=== PATIENT | male | born 1945 | race Caucasian/White ===

== ENCOUNTER 2017-10-18 21:00 | Inpatient (IN) | payer MEDICARE ==
[2017-10-18] MEDS ORDERED: Sodium Chloride 0.9% 500 ML IV STA (21:37)
--- NOTE | 2017-10-18 21:42 | ED PDOC ---
HPI: Male Pain Time Seen by Provider: 10/18/17 21:30 Chief Complaint (Nursing): Male Genitourinary Chief Complaint (Provider): dysuria History Per: Patient History/Exam Limitations: no limitations Onset/Duration Of Symptoms: Days (2) Current Symptoms Are (Timing): Still Present Quality Of Discomfort: Burning, "Pain" Associated Symptoms: Nausea, Vomiting, Urinary Symptoms Additional Complaint(s): 71 y/o male presents for evaluation of dysuria x 2 days. Associated tactile fevers, vomiting, increased urine frequency/urgency and suprapubic pain. Denies headache, dizziness, back pain, hematuria. Last dose Tylenol taken 4:00am. Past Medical History Reviewed: Historical Data, Nursing Documentation, Vital Signs Vital Signs: Last Vital Signs Temp 99.3 F 10/18/17 21:06 Pulse 108 H 10/18/17 21:06 Resp 16 10/18/17 21:06 BP 153/81 H 10/18/17 21:06 Pulse Ox 98 10/18/17 21:06 - Medical History PMH: HTN Denies: HIV - Surgical History Surgical History: No Surg Hx - Family History Family History: States: No Known Family Hx - Living Arrangements Living Arrangements: With Family - Home Medications Home Medications: Ambulatory Orders Medication Instructions Recorded Atenolol [Tenormin] 50 mg PO DAILY 12/28/14 - Allergies Allergies/Adverse Reactions: Allergies Allergy/AdvReac Type Severity Reaction Status Date / Time No Known Allergies Allergy Verified 10/18/17 21:06 Review of Systems ROS Statement: Except As Marked, All Systems Reviewed And Found Negative Gastrointestinal: Positive for: Nausea, Vomiting, Abdominal Pain Genitourinary Male: Positive for: Dysuria, Frequency Physical Exam - Reviewed Nursing Documentation Reviewed: Yes Vital Signs Reviewed: Yes - Physical Exam Appears: Positive for: Well, Non-toxic, No Acute Distress Head Exam: Positive for: ATRAUMATIC, NORMAL INSPECTION, NORMOCEPHALIC Skin: Positive for: Normal Color Eye Exam: Positive for: Normal appearance ENT: Positive for: Normal ENT Inspection Cardiovascular/Chest: Positive for: Regular Rate, Rhythm Respiratory: Positive for: Normal Breath Sounds Gastrointestinal/Abdominal: Positive for: Bowel Sounds, Soft, Tenderness ( suprapubic) Back: Positive for: Normal Inspection Extremity: Positive for: Normal ROM Neurologic/Psych: Positive for: Alert, Oriented (x3) - Laboratory Results Result Diagrams: 10/18/17 22:12 10/18/17 22:12 - ECG ECG: Positive for: Viewed By Me (reviewed by ED attending) ECG Rhythm: Positive for: Sinus Rhythm O2 Sat by Pulse Oximetry: 98 - Radiology X-Ray: Viewed By Me X-Ray Interpretation: No Acute Disease - Progress ED Course And Treament: labs, urine, CT abd/pelvis IV contrast, IV fluids, IV toradol EXAM: CT Abdomen and Pelvis With Intravenous Contrast EXAM DATE/TIME: 10/18/2017 10:52 PM CLINICAL HISTORY: 71 years old, male; Pain and signs and symptoms; Fever and nausea and other: Dysuria; Abdominal pain; Generalized; Additional info: Abd pain, vomiting, dysuria TECHNIQUE: Axial computed tomography images of the abdomen and pelvis with intravenous contrast. All CT scans at this facility use at least one of these dose optimization techniques: automated exposure control; mA and/or kV adjustment per patient size (includes targeted exams where dose is matched to clinical indication); or iterative reconstruction. Coronal and sagittal reformatted images were created and reviewed. No oral contrast was administered. CONTRAST: 95 ml of [id number] administered intravenously. COMPARISON: CT Abdomen/Pelvis 12/28/2014 FINDINGS: Lower thorax: No pulmonary airspace consolidation or pleural fluid collection in the imaged portion of the thorax. ABDOMEN: Liver: Redemonstrated diffuse fatty infiltration of the liver. Redemonstrated mild hepatomegaly. Gallbladder and bile ducts: No acute findings. No radiopaque gallstones. Pancreas: No acute findings. No peripancreatic fat stranding or fluid. Spleen: Mild splenomegaly, new since the prior study. Adrenals: No acute findings. Kidneys and ureters: Mild to moderate bilateral perinephric fat stranding, mildly increased compared to the prior study. No striated nephrogram. No urinary tract dilation or evident urinary tract calculi. Redemonstrated 12 mm right renal cyst. Stomach and bowel: Redemonstrated colonic diverticulosis. Prominent wall thickening of the distal descending through mid sigmoid colon with moderate adjacent fat stranding, more extensive than on the prior study. The pericolonic inflammatory changes extend from the inferior margin of the sigmoid colon to the superior margin of the bladder dome. There is prominent circumferential bladder wall thickening and more pronounced focal bladder wall thickening at the bladder dome. There is a 1.6 x 1.7 x 0.9 cm gas-containing fluid collection consistent with an abscess in or adjacent to the bladder dome (series 3, image 156). There is also a small focus of air in the bladder lumen. Moderate fat stranding surrounding the bladder. No evident acute abnormality of the rest of the colon. No evident acute abnormality of the stomach or small bowel. Appendix: Normal appendix. PELVIS: Bladder: See "Stomach and bowel" above. Reproductive: Redemonstrated enlargement of the prostate gland, measuring 6.7 cm in maximal axial dimension. ABDOMEN and PELVIS: Intraperitoneal space: No free intraperitoneal air. Tiny amount of free intraperitoneal fluid. Bones/joints: No acute findings. Soft tissues: Redemonstrated small, fat-containing umbilical hernia with no associated complications. Vasculature: No acute findings. The abdominal aorta is normal in caliber. Lymph nodes: No enlarged abdominal or pelvic lymph nodes by CT criteria. IMPRESSION: 1. Acute diverticulitis of the distal descending through mid sigmoid colon. The pericolonic inflammation extends inferiorly to involve the bladder dome and there is a 1.6 x 1.7 x 0.9 cm abscess in or adjacent to the bladder dome. A small focus of air in the bladder lumen may be due to recent bladder catheterization but differential diagnosis also includes a colovesical fistula. Circumferential bladder wall thickening with surrounding fat stranding is consistent with reactive cystitis. 2. Mild to moderate bilateral perinephric fat stranding can be a normal variant for the patient's age. Differential diagnosis also includes acute pyelonephritis but there are no striated nephrograms to further suggest pyelonephritis. 3. Mild splenomegaly. 4. Redemonstrated diffuse fatty infiltration of the liver and mild hepatomegaly. 5. Additional redemonstrated and nonacute findings as described above. Case discussed with ED attending Dr. Polanco, will start IV Cipro, IV flagyl and admit Case discussed with Dr. Kendall, medical service on-call, for admission Disposition - Clinical Impression Clinical Impression: Urinary tract infection, Diverticulitis, Intra-abdominal abscess - Patient ED Disposition Is Patient to be Admitted: Yes - Disposition Disposition Time: 01:00 Condition: FAIR
[2017-10-18 22:18] LABS: BASO % 0.3 % (0.0-2.0); EOS % 0.3 % (0.0-4.0); LYMPH # 0.9 K/uL (1.0-4.3); LYMPH % 7.2 % (20.0-40.0); MEAN CELL VOLUME 95.2 fl (80.0-94.0); MEAN CORPUSCULAR HEMOGLOBIN 33.2 pg (27.0-31.0); MEAN CORPUSCULAR HGB CONC 34.9 g/dL (33.0-37.0); MEAN PLATELET VOLUME 7.1 fl (7.2-11.7); MONO # 0.7 K/uL (0.0-0.8); NEUT # 10.2 K/uL (1.8-7.0); NEUT % 86.2 % (50.0-75.0); PLATELET COUNT 145 K/uL (130-400); RED CELL DISTRIBUTION WIDTH 13.7 % (11.5-14.5); WHITE BLOOD COUNT 11.8 K/uL (4.8-10.8)
[2017-10-18 22:20] LABS: VENOUS BLOOD GAS BASE EXCESS 4.9 mmol/L (0.0-2.0); VENOUS BLOOD GAS PCO2 36 mmHg (40-60); VENOUS BLOOD GAS PO2 37 mm/Hg (30-55)
[2017-10-18 22:36] LABS: SQUAMOUS EPITHIAL 1 /hpf (0-5); URINE BACTERIA OCC (<OCC); URINE BILIRUBIN NEGATIVE (NEGATIVE); URINE BLOOD MODERATE (NEGATIVE); URINE CLARITY CLOUDY (Clear); URINE COLOR AMBER (YELLOW); URINE GLUCOSE (UA) NEG (Normal); URINE HYALINE CAST 0-2 /hpf (0-2); URINE LEUKOCYTE ESTERASE MOD Leu/uL (Negative); URINE PROTEIN >=500 mg/dL (NEGATIVE); URINE UROBILINOGEN 0.2-1.0 mg/dL (0.2-1.0); WBC CLUMPS FEW /hpf
[2017-10-18 22:39] LABS: ALBUMIN 3.8 g/dL (3.5-5.0); ALT/SGPT 27 U/L (21-72); AST/SGOT 29 U/L (17-59); BLOOD UREA NITROGEN 22 mg/dl (9-20); CALCIUM 8.2 mg/dL (8.4-10.2); GFR AFRICAN-AMERICAN > 60; GFR NON-AFRICAN AMERICAN > 60
[2017-10-18] MEDS ORDERED: Sodium Chloride 0.9% 50 ML IV ONE (23:00)
[2017-10-18] MEDS ORDERED: Iohexol 300 100 ML IJ ONE (23:00)
[2017-10-18 23:09] LABS: ANISOCYTOSIS SLIGHT; BANDS 1 % (0-2); LYMPHOCYTE 7 % (20-50); MONOCYTE 6 % (0-10); NEUTROPHIL 86 % (42-75); PLATELET ESTIMATE NORMAL (NORMAL); TOTAL CELLS COUNTED 100
[2017-10-18] MEDS ORDERED: Potassium Chloride 20 mEq ER Tab PO ONE ×2 (23:12→23:21)
[2017-10-19] MEDS ORDERED: metroNIDAZOLE 500mg/100ml NS 100 ML IV STA (00:37)
[2017-10-19] MEDS ORDERED: Ciprofloxacin 400mg/200ml D5W 400 MG/200 ML BAG IV ONE (00:37)
[2017-10-19] MEDS ORDERED: Sodium Chloride 0.9% 500 ML IV STA ×2 (00:50→02:50)
[2017-10-19] MEDS ORDERED: Ciprofloxacin 400mg/200ml D5W 400 MG/200 ML BAG IVPB ONE (01:04)
[2017-10-19] MEDS ORDERED: metroNIDAZOLE 500mg/100ml NS 100 ML IVPB ONE (01:04)
[2017-10-19 07:56] LABS: HEMOGLOBIN 11.6 g/dL (12.0-18.0); MEAN CELL VOLUME 94.4 fl (80.0-94.0); MEAN CORPUSCULAR HEMOGLOBIN 33.8 pg (27.0-31.0); MEAN CORPUSCULAR HGB CONC 35.8 g/dL (33.0-37.0); RBC 3.44 Mil/uL (4.40-5.90); RED CELL DISTRIBUTION WIDTH 13.7 % (11.5-14.5); WHITE BLOOD COUNT 7.9 K/uL (4.8-10.8)
--- NOTE | 2017-10-19 08:02 | CP.PCM.HP ---
<Neha Killian - Last Filed: 10/19/17 11:09> History of Present Illness - History of Present Illness History of Present Illness: 71 yo M with hypertension and history of pancreatitis, who is admitted to [facility] center due to acute diverticulitis. For the past 2 days, he has had dysuria, tactile fevers, vomiting, inceased urinary frequency and urgency, and suprapubic pain. He has taken tylenol for pain but it did not alleviate discomfort and pain. No hematuria, no chest pain, no dizziness, no shortness of breath. CT done in ED: 1. Acute diverticulitis of the distal descending through mid sigmoid colon. The pericolonic inflammation extends inferiorly to involve the bladder dome and there is a 1.6 x 1.7 x 0.9 cm abscess in or adjacent to the bladder dome. A small focus of air in the bladder lumen may be due to recent bladder catheterization but differential diagnosis also includes a colovesical fistula. Circumferential bladder wall thickening with surrounding fat stranding is consistent with reactive cystitis. 2. Mild to moderate bilateral perinephric fat stranding can be a normal variant for the patient's age. Differential diagnosis also includes acute pyelonephritis but there are no striated nephrograms to further suggest pyelonephritis. 3. Mild splenomegaly. 4. Redemonstrated diffuse fatty infiltration of the liver and mild hepatomegaly. 5. Additional redemonstrated and nonacute findings. Present on Admission - Present on Admission Any Indicators Present on Admission: No Review of Systems - Review of Systems Review of Systems: as per HPI Past Patient History - Past Medical History & Family History Past Medical History?: Yes - Past Social History Smoking Status: Never Smoked Drugs: Denies - CARDIAC Hx Hypertension: Yes - PULMONARY Hx Respiratory Disorders: No - NEUROLOGICAL Hx Neurological Disorder: No - HEENT Hx HEENT Problems: No - RENAL Hx Chronic Kidney Disease: No - ENDOCRINE/METABOLIC Hx Endocrine Disorders: No - HEMATOLOGICAL/ONCOLOGICAL Hx Human Immunodeficiency Virus (HIV): No - INTEGUMENTARY Hx Dermatological Problems: No - MUSCULOSKELETAL/RHEUMATOLOGICAL Hx Musculoskeletal Disorders: No Hx Falls: No - GASTROINTESTINAL Hx Gastrointestinal Disorders: Yes Hx Fatty Liver Disease: Yes Hx Pancreatitis: Yes - GENITOURINARY/GYNECOLOGICAL Hx Genitourinary Disorders: No - PSYCHIATRIC Hx Psychophysiologic Disorder: No Hx Substance Use: No - SURGICAL HISTORY Hx Surgeries: No - ANESTHESIA Hx Anesthesia: No Meds Allergies/Adverse Reactions: Allergies Allergy/AdvReac Type Severity Reaction Status Date / Time No Known Allergies Allergy Verified 10/18/17 21:06 Physical Exam - Constitutional Appears: No Acute Distress - Eye Exam Eye Exam: Normal appearance - Respiratory Exam Respiratory Exam: Clear to Auscultation Bilateral, NORMAL BREATHING PATTERN - Cardiovascular Exam Cardiovascular Exam: REGULAR RHYTHM, +S1, +S2 - GI/Abdominal Exam GI & Abdominal Exam: Normal Bowel Sounds, Soft, Tenderness (suprapubic) - Extremities Exam Extremities exam: Positive for: normal inspection. Negative for: calf tenderness - Neurological Exam Neurological exam: Alert - Psychiatric Exam Psychiatric exam: Normal Mood - Skin Skin Exam: Normal Color, Warm Results - Vital Signs Recent Vital Signs: Last Vital Signs Temp 99.3 F 10/19/17 03:15 Pulse 95 H 10/19/17 03:15 Resp 18 10/19/17 03:15 BP 145/71 10/19/17 03:15 Pulse Ox 98 10/19/17 05:38 - Labs Result Diagrams: 10/19/17 07:37 10/19/17 07:37 Labs: Laboratory Results - last 24 hr 10/18/17 10/18/17 10/18/17 22:10 22:12 22:12 WBC 11.8 H D RBC 3.60 L Hgb 12.0 Hct 34.3 L MCV 95.2 H MCH 33.2 H MCHC 34.9 RDW 13.7 Plt Count 145 MPV 7.1 L Neut % (Auto) 86.2 H Lymph % (Auto) 7.2 L Roberts % (Auto) 6.0 Eos % (Auto) 0.3 Baso % (Auto) 0.3 Neut # (Auto) 10.2 H Lymph # (Auto) 0.9 L Roberts # (Auto) 0.7 Eos # (Auto) 0.0 Baso # (Auto) 0.0 Neutrophils % (Manual) 86 H Band Neutrophils % 1 Lymphocytes % (Manual) 7 L Monocytes % (Manual) 6 Platelet Estimate Normal Anisocytosis (manual) Slight Macrocytosis (manual) Slight pO2 VBG pH VBG pCO2 VBG HCO3 VBG Total CO2 VBG O2 Sat (Calc) VBG Base Excess VBG Potassium Sodium 135 Chloride 98 Glucose Lactate FiO2 Potassium 2.9 L Carbon Dioxide 24 Anion Gap 16 BUN 22 H Creatinine 1.1 Est GFR ( Amer) > 60 Est GFR (Non-Af Amer) > 60 Random Glucose 136 H Calcium 8.2 L Total Bilirubin 1.0 AST 29 ALT 27 Alkaline Phosphatase 94 Total Protein 7.4 Albumin 3.8 Globulin 3.6 Albumin/Globulin Ratio 1.0 Venous Blood Potassium Urine Color Aleena Urine Clarity Cloudy Urine pH 6.0 Ur Specific Jupiter 1.024 Urine Protein >=500 Urine Glucose (UA) Neg Urine Ketones Negative Urine Blood Moderate Urine Nitrate Negative Urine Bilirubin Negative Urine Urobilinogen 0.2-1.0 Ur Leukocyte Esterase Mod Urine RBC (Auto) 21 H Urine WBC Clumps (Auto) Few H Urine Microscopic WBC 378 H Ur Squamous Epith Cells 1 Urine Bacteria Occ H Hyaline Casts 0-2 10/18/17 22:12 WBC RBC Hgb Hct MCV MCH MCHC RDW Plt Count MPV Neut % (Auto) Lymph % (Auto) Roberts % (Auto) Eos % (Auto) Baso % (Auto) Neut # (Auto) Lymph # (Auto) Roberts # (Auto) Eos # (Auto) Baso # (Auto) Neutrophils % (Manual) Band Neutrophils % Lymphocytes % (Manual) Monocytes % (Manual) Platelet Estimate Anisocytosis (manual) Macrocytosis (manual) pO2 37 VBG pH 7.50 H VBG pCO2 36 L VBG HCO3 28.2 VBG Total CO2 29.2 H VBG O2 Sat (Calc) 78.2 H VBG Base Excess 4.9 H VBG Potassium 2.7 L Sodium 133.0 Chloride 100.0 Glucose 138 H Lactate 0.9 FiO2 21.0 Potassium Carbon Dioxide Anion Gap BUN Creatinine Est GFR ( Amer) Est GFR (Non-Af Amer) Random Glucose Calcium Total Bilirubin AST ALT Alkaline Phosphatase Total Protein Albumin Globulin Albumin/Globulin Ratio Venous Blood Potassium 2.7 L Urine Color Urine Clarity Urine pH Ur Specific Jupiter Urine Protein Urine Glucose (UA) Urine Ketones Urine Blood Urine Nitrate Urine Bilirubin Urine Urobilinogen Ur Leukocyte Esterase Urine RBC (Auto) Urine WBC Clumps (Auto) Urine Microscopic WBC Ur Squamous Epith Cells Urine Bacteria Hyaline Casts Assessment & Plan - Assessment and Plan (Free Text) Assessment: 71 yo M with hypertension, history of pancreatitis in 2015, admitted for acute diverticulitis; possible fistula. On labs found to have hyperlipidemia, hypokalemia, low vit B12. Plan: - admitted to med surg - [facility] - hoke and flagyl started - continue IV hydration and pain control, replete K - await results urine and blood cultures - gastroenterology and general surgery consults placed - [facility] meds for htn - heart healthy diet - scd - rest of plan as ordered <Aleksandar Kendall - Last Filed: 10/21/17 06:48> Results - Vital Signs Recent Vital Signs: Last Vital Signs Temp 99.5 F 10/21/17 00:36 Pulse 79 10/21/17 00:36 Resp 18 10/21/17 00:36 BP 141/84 10/21/17 00:36 Pulse Ox 98 10/21/17 00:36 - Labs Result Diagrams: 10/20/17 06:00 10/20/17 06:00 Labs: Laboratory Results - last 24 hr 10/20/17 10/20/17 06:00 06:00 WBC 4.8 RBC 3.41 L Hgb 11.5 L Hct 32.9 L MCV 96.3 H MCH 33.6 H MCHC 35.0 RDW 14.0 Plt Count 136 Sodium 137 Potassium 3.5 L Chloride 105 Carbon Dioxide 23 Anion Gap 13 BUN 16 Creatinine 1.2 Est GFR ( Amer) > 60 Est GFR (Non-Af Amer) > 60 Random Glucose 136 H Calcium 8.0 L Phosphorus 2.5 Magnesium 2.0 Total Bilirubin 0.6 AST 40 ALT 33 Alkaline Phosphatase 87 Total Protein 6.4 Albumin 3.3 L Globulin 3.0 Albumin/Globulin Ratio 1.1 Triglycerides 1004 H Assessment & Plan - Assessment and Plan (Free Text) Plan: Patient was personally seen and examined by me in rounds with residents. Available labs and diagnostic data reviewed. Case, Patient's condition and management plan discussed with residents in rounds. Agree with resident's progress note. Plan: As ordered.
--- NOTE | 2017-10-19 08:15 | RAD ---
Date of service: 10/19/2017 HISTORY: admit COMPARISON: 12/31/2014 FINDINGS: LUNGS: No active pulmonary disease. PLEURA: No significant pleural effusion identified, no pneumothorax apparent. CARDIOVASCULAR: Mild cardiomegaly (similar-appearing) probable top-normal pulmonary vasculature -shallow lung volume status noted. OSSEOUS STRUCTURES: No significant abnormalities. VISUALIZED UPPER ABDOMEN: Normal. OTHER FINDINGS: None. IMPRESSION: Current exam more shallow lung volumes than before -accentuating above appearances noted No interval consolidation
[2017-10-19 08:19] LABS: ALBUMIN 3.6 g/dL (3.5-5.0); ALT/SGPT 28 U/L (21-72); AST/SGOT 28 U/L (17-59); BLOOD UREA NITROGEN 22 mg/dl (9-20); CALCIUM 7.8 mg/dL (8.4-10.2); GFR AFRICAN-AMERICAN > 60; GFR NON-AFRICAN AMERICAN > 60; HDL CHOLESTEROL 15 MG/DL (30-70)
--- NOTE | 2017-10-19 08:30 | CARD ---
APPROVED REPORT Date of service: 10/18/2017 <Conclusion> Normal sinus rhythm Normal ECG
[2017-10-19 08:34] LABS: LDL CHOLESTEROL < 30 mg/dL (0-129)
[2017-10-19] MEDS: Enoxaparin 40 mg Syringe SC SCH (08:51)
[2017-10-19] MEDS ORDERED: Ciprofloxacin 400mg/200ml D5W 400 MG/200 ML BAG IVPB SCH (09:00)
[2017-10-19] MEDS ORDERED: Potassium Chloride 20 mEq ER Tab PO ONE (09:38)
[2017-10-19] MEDS ORDERED: Potassium Chl 40 mEq in D5-NS 1,000 ML IV SCH (10:00)
--- NOTE | 2017-10-19 11:14 | CT ---
Date of service: 10/18/2017 PROCEDURE: CT Abdomen and Pelvis with contrast HISTORY: abd pain, vomiting, dysuria COMPARISON: Comparison is made with the previous study dated 12/28/2014 TECHNIQUE: Contrast dose: 95 mL of Omnipaque 300. Axial and reformatted coronal and sagittal CT images of the abdomen and pelvis were obtained after IV contrast administration. Radiation dose: Total exam DLP = 677.18 mGy-cm. This CT exam was performed using one or more of the following dose reduction techniques: Automated exposure control, adjustment of the mA and/or kV according to patient size, and/or use of iterative reconstruction technique. FINDINGS: LOWER THORAX: Unremarkable. LIVER: Moderate hepatic steatosis is again noted. [id number] hepatomegaly is again noted. GALLBLADDER AND BILE DUCTS: Unremarkable. PANCREAS: Unremarkable. No gross lesion or ductal dilatation. SPLEEN: The spleen is mildly enlarged. ADRENALS: Unremarkable. No mass. KIDNEYS AND URETERS: The kidneys enhance symmetrically. Again noted is bilateral nonspecific perinephric stranding. No evidence of hydronephrosis. VASCULATURE: Unremarkable. No aortic aneurysm. BOWEL: Colonic diverticulosis are again noted. There is segmental wall thickening of the sigmoid colon surrounding with inflammatory changes suggestive of acute diverticulitis. There is adjacent fluid collection measures 3.8 by 2.3 centimeter contains fluid and air suggestive of abscess formation that cannot be from the bladder dome. The possibility of colovesical fistula cannot be excluded. There is no evidence of high-grade bowel obstruction. Mildly dilated small bowel loops at the mid abdomen noted. APPENDIX: Normal appendix. PERITONEUM: Unremarkable. No free fluid. No free air. LYMPH NODES: Unremarkable. No enlarged lymph nodes. BLADDER: Diffuse urinary bladder wall thickening. There is a small amount of air seen at the anterior aspect of the bladder lumen which could be due to recent catheterization. However the possible colovesical fistula cannot be totally excluded due to presence of abscess formation that cannot be from the bladder dome and inflammatory changes from the adjacent diverticulitis. REPRODUCTIVE: The prostate is moderately enlarged. BONES: No acute fracture. OTHER FINDINGS: None. IMPRESSION: Findings consistent with acute diverticulitis involving the sigmoid colon and associated with diffuse thickening of the proximal sigmoid colon. Further assessment of the large bowel after the acute phase is suggested. Findings suspicious for abscess formation extending from the sigmoid colon to the bladder dome measures 3.8 x 2.3 centimeter. Small focus of air in the bladder lumen may be due to recent bladder catheterization however the possibility of colovesical fistula also should be excluded. Mild splenomegaly. Additional findings as described above. Preliminary report was submitted by [facility].
[2017-10-19 11:16] LABS: AMYLASE 50 U/L (30-110); LIPASE 73 U/L (23-300)
--- NOTE | 2017-10-19 11:25 | CP.PCM.CON ---
<TomaSola - Last Filed: 10/19/17 11:22> History of Present Illness - History of Present Illness History of Present Illness: General Surgery Dr. Parada 71 y/o M w/ PMHx of HTN, HLD, pancreatitis presented to the ED on 10/18 c/o suprapubic abd pain. Pt states pain started Tuesday, assoc w/ nausea, NBNB vomiting, subjective F/C. At home, pt took tylenol for pain and fever relief; however, on Tuesday, pt was unable to get relief, thus prompting him to come to the ED for evaluation. Pt reports having similar pain 5 yr ago when he was Dx and Tx non-operatively for diverticulitis. 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 Pt admits to dysuria, frequency, and odor w/ urination, which started concurrently w/ pain. Pt has never had these symptoms previously. Pt denies CP, SOB, and currently denies F/C , N/V, D/C. PMHx: see above Meds: reviewed in chart NKDA PSHx: denies SHx: denies tobacco, EtOH, drug use FHx: noncontributory. Review of Systems - Review of Systems All systems: reviewed and no additional remarkable complaints except (see HPI) Past Patient History - Past Medical History & Family History Past Medical History?: Yes - Past Social History Smoking Status: Never Smoked Drugs: Denies - CARDIAC Hx Hypertension: Yes - PULMONARY Hx Respiratory Disorders: No - NEUROLOGICAL Hx Neurological Disorder: No - HEENT Hx HEENT Problems: No - RENAL Hx Chronic Kidney Disease: No - ENDOCRINE/METABOLIC Hx Endocrine Disorders: No - HEMATOLOGICAL/ONCOLOGICAL Hx Human Immunodeficiency Virus (HIV): No - INTEGUMENTARY Hx Dermatological Problems: No - MUSCULOSKELETAL/RHEUMATOLOGICAL Hx Musculoskeletal Disorders: No Hx Falls: No - GASTROINTESTINAL Hx Gastrointestinal Disorders: Yes Hx Fatty Liver Disease: Yes Hx Pancreatitis: Yes - GENITOURINARY/GYNECOLOGICAL Hx Genitourinary Disorders: No - PSYCHIATRIC Hx Psychophysiologic Disorder: No Hx Substance Use: No - SURGICAL HISTORY Hx Surgeries: No - ANESTHESIA Hx Anesthesia: No Meds Allergies/Adverse Reactions: Allergies Allergy/AdvReac Type Severity Reaction Status Date / Time No Known Allergies Allergy Verified 10/18/17 21:06 - Medications Medications: Current Medications Atenolol (Tenormin) 50 mg PO DAILY [facility] Last Admin: 10/19/17 08:51 Dose: 50 mg Enoxaparin Sodium (Lovenox) 40 mg SC DAILY [facility] PRN Reason: Protocol Last Admin: 10/19/17 08:51 Dose: 40 mg Ciprofloxacin (Cipro 400mg/200ml Dsw) 400 mg in 200 mls @ 200 mls/hr IVPB Q12 [facility]ARG[facility] PRN Reason: Protocol Metronidazole (Flagyl 500mg/100ml Ns) 100 mls @ 100 mls/hr IVPB Q8 [facility]ARG[facility]ITA PRN Reason: Protocol Potassium Chloride/Dextrose/Sod Cl (Potassium Chl 40 Meq In D5-1/2ns) 1,000 mls @ 125 mls/hr IV .Q8H [facility] Stop: 10/20/17 10:24 Morphine Sulfate (Morphine) 2 mg IVP Q4 PRN PRN Reason: Pain, severe (8-10) Ondansetron HCl (Zofran Inj) 4 mg IV Q8 PRN PRN Reason: Nausea/Vomiting Physical Exam - Constitutional Appears: Non-toxic, No Acute Distress - Head Exam Head Exam: NORMAL INSPECTION - Eye Exam Eye Exam: Normal appearance - ENT Exam ENT Exam: Mucous Membranes Moist - Respiratory Exam Respiratory Exam: Clear to Auscultation Bilateral, NORMAL BREATHING PATTERN. absent: Accessory Muscle Use, Rales, Rhonchi, Wheezes, Respiratory Distress - Cardiovascular Exam Cardiovascular Exam: REGULAR RHYTHM. absent: Bradycardia, Tachycardia - GI/Abdominal Exam GI & Abdominal Exam: Hernia (0.5cm umbilical hernia), Normal Bowel Sounds, Soft. absent: Distended, Firm, Guarding, Rebound, Rigid, Tenderness - Extremities Exam Extremities exam: Positive for: normal inspection. Negative for: tenderness - Neurological Exam Neurological exam: Alert, Oriented x3 - Psychiatric Exam Psychiatric exam: Normal Affect, Normal Mood - Skin Skin Exam: Dry, Intact, Normal Color, Warm Results - Vital Signs Recent Vital Signs: Last Vital Signs Temp 99.5 F 10/19/17 08:20 Pulse 91 H 10/19/17 08:51 Resp 20 10/19/17 08:20 BP 146/79 10/19/17 08:51 Pulse Ox 96 10/19/17 08:20 - Labs Result Diagrams: 10/19/17 07:37 10/19/17 07:37 Labs: Laboratory Results - last 24 hr 10/18/17 10/18/17 10/18/17 22:10 22:12 22:12 WBC 11.8 H D RBC 3.60 L Hgb 12.0 Hct 34.3 L MCV 95.2 H MCH 33.2 H MCHC 34.9 RDW 13.7 Plt Count 145 MPV 7.1 L Neut % (Auto) 86.2 H Lymph % (Auto) 7.2 L [place] % (Auto) 6.0 Eos % (Auto) 0.3 Baso % (Auto) 0.3 Neut # (Auto) 10.2 H Lymph # (Auto) 0.9 L [place] # (Auto) 0.7 Eos # (Auto) 0.0 Baso # (Auto) 0.0 Neutrophils % (Manual) 86 H Band Neutrophils % 1 Lymphocytes % (Manual) 7 L Monocytes % (Manual) 6 Platelet Estimate Normal Anisocytosis (manual) Slight Macrocytosis (manual) Slight pO2 VBG pH VBG pCO2 VBG HCO3 VBG Total CO2 VBG O2 Sat (Calc) VBG Base Excess VBG Potassium Sodium 135 Chloride 98 Glucose Lactate FiO2 Potassium 2.9 L Carbon Dioxide 24 Anion Gap 16 BUN 22 H Creatinine 1.1 Est GFR ( Amer) > 60 Est GFR (Non-Af Amer) > 60 Random Glucose 136 H Calcium 8.2 L Total Bilirubin 1.0 AST 29 ALT 27 Alkaline Phosphatase 94 Total Protein 7.4 Albumin 3.8 Globulin 3.6 Albumin/Globulin Ratio 1.0 Triglycerides Cholesterol LDL Cholesterol Direct HDL Cholesterol Amylase Lipase Vitamin B12 TSH 3rd Generation Venous Blood Potassium Urine Color [place]ena Urine Clarity Cloudy Urine pH 6.0 Ur Specific [place] 1.024 Urine Protein >=500 Urine Glucose (UA) Neg Urine Ketones Negative Urine Blood Moderate Urine Nitrate Negative Urine Bilirubin Negative Urine Urobilinogen 0.2-1.0 Ur Leukocyte Esterase Mod Urine RBC (Auto) 21 H Urine WBC Clumps (Auto) Few H Urine Microscopic WBC 378 H Ur Squamous Epith Cells 1 Urine Bacteria Occ H Hyaline Casts 0-2 10/18/17 10/19/17 10/19/17 22:12 07:37 07:37 WBC 7.9 RBC 3.44 L Hgb 11.6 L Hct 32.5 L MCV 94.4 H MCH 33.8 H MCHC 35.8 RDW 13.7 Plt Count 139 MPV Neut % (Auto) Lymph % (Auto) [place] % (Auto) Eos % (Auto) Baso % (Auto) Neut # (Auto) Lymph # (Auto) [place] # (Auto) Eos # (Auto) Baso # (Auto) Neutrophils % (Manual) Band Neutrophils % Lymphocytes % (Manual) Monocytes % (Manual) Platelet Estimate Anisocytosis (manual) Macrocytosis (manual) pO2 37 VBG pH 7.50 H VBG pCO2 36 L VBG HCO3 28.2 VBG Total CO2 29.2 H VBG O2 Sat (Calc) 78.2 H VBG Base Excess 4.9 H VBG Potassium 2.7 L Sodium 133.0 137 Chloride 100.0 101 Glucose 138 H Lactate 0.9 FiO2 21.0 Potassium 3.2 L Carbon Dioxide 24 Anion Gap 15 BUN 22 H Creatinine 1.1 Est GFR ( Amer) > 60 Est GFR (Non-Af Amer) > 60 Random Glucose 128 H Calcium 7.8 L Total Bilirubin 0.7 AST 28 ALT 28 Alkaline Phosphatase 91 Total Protein 7.1 Albumin 3.6 Globulin 3.5 Albumin/Globulin Ratio 1.0 Triglycerides 1184 H Cholesterol 226 H LDL Cholesterol Direct < 30 HDL Cholesterol 15 L Amylase Lipase Vitamin B12 182 L TSH 3rd Generation 7.36 H Venous Blood Potassium 2.7 L Urine Color Urine Clarity Urine pH Ur Specific [place] Urine Protein Urine Glucose (UA) Urine Ketones Urine Blood Urine Nitrate Urine Bilirubin Urine Urobilinogen Ur Leukocyte Esterase Urine RBC (Auto) Urine WBC Clumps (Auto) Urine Microscopic WBC Ur Squamous Epith Cells Urine Bacteria Hyaline Casts 10/19/17 11:09 WBC RBC Hgb Hct MCV MCH MCHC RDW Plt Count MPV Neut % (Auto) Lymph % (Auto) [place] % (Auto) Eos % (Auto) Baso % (Auto) Neut # (Auto) Lymph # (Auto) [place] # (Auto) Eos # (Auto) Baso # (Auto) Neutrophils % (Manual) Band Neutrophils % Lymphocytes % (Manual) Monocytes % (Manual) Platelet Estimate Anisocytosis (manual) Macrocytosis (manual) pO2 VBG pH VBG pCO2 VBG HCO3 VBG Total CO2 VBG O2 Sat (Calc) VBG Base Excess VBG Potassium Sodium Chloride Glucose Lactate FiO2 Potassium Carbon Dioxide Anion Gap BUN Creatinine Est GFR ( Amer) Est GFR (Non-Af Amer) Random Glucose Calcium Total Bilirubin AST ALT Alkaline Phosphatase Total Protein Albumin Globulin Albumin/Globulin Ratio Triglycerides Cholesterol LDL Cholesterol Direct HDL Cholesterol Amylase 50 Lipase 73 Vitamin B12 TSH 3rd Generation Venous Blood Potassium Urine Color Urine Clarity Urine pH Ur Specific [place] Urine Protein Urine Glucose (UA) Urine Ketones Urine Blood Urine Nitrate Urine Bilirubin Urine Urobilinogen Ur Leukocyte Esterase Urine RBC (Auto) Urine WBC Clumps (Auto) Urine Microscopic WBC Ur Squamous Epith Cells Urine Bacteria Hyaline Casts - Imaging and Cardiology CT scan - abdomen Status: Image reviewed by me, Report reviewed by me Assessment & Plan - Assessment and Plan (Free Text) Assessment: 71 y/o M w/ recurrent, complicated sigmoid diverticulitis and 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 Tal Chua DO PGY3 <Tia Parada - Last Filed: 10/22/17 11:22> Meds - Medications Medications: Current Medications Acetaminophen (Tylenol 325mg Tab) 650 mg PO Q4 PRN PRN Reason: Fever >100.4 F Last Admin: 10/20/17 08:33 Dose: 650 mg Atenolol (Tenormin) 50 mg PO DAILY [facility] Last Admin: 10/22/17 08:35 Dose: 50 mg Cyanocobalamin (Vitamin B12 1000 Mcg/Ml Inj) 1,000 mcg IM DAILY [facility] Last Admin: 10/22/17 08:36 Dose: 1,000 mcg Docusate Sodium (Colace) 100 mg PO BID [facility] Last Admin: 10/22/17 10:18 Dose: 100 mg Enoxaparin Sodium (Lovenox) 40 mg SC DAILY [facility] PRN Reason: Protocol Last Admin: 10/22/17 10:18 Dose: 40 mg Fenofibrate (Tricor) 145 mg PO DAILY [facility] Last Admin: 10/22/17 08:35 Dose: 145 mg Metronidazole (Flagyl 500mg/100ml Ns) 100 mls @ 100 mls/hr IVPB Q8 [facility] PRN Reason: Protocol Last Admin: 10/22/17 08:36 Dose: 100 mls/hr Potassium Chloride/Dextrose/Sod Cl (Potassium Chl 20 Meq In D5-1/2ns) 1,000 mls @ 125 mls/hr IV .Q8H [facility] Last Admin: 10/22/17 10:42 Dose: 125 mls/hr Meropenem 1 gm/ Sodium (Chloride) 100 mls @ 100 mls/hr IVPB Q8@0430,1230,2030 [facility] PRN Reason: Protocol Last Admin: 10/22/17 04:13 Dose: 100 mls/hr Levothyroxine Sodium (Synthroid) 25 mcg PO DAILY@0630 [facility] Last Admin: 10/22/17 06:18 Dose: 25 mcg Morphine Sulfate (Morphine) 2 mg IVP Q4 PRN PRN Reason: Pain, severe (8-10) Ondansetron HCl (Zofran Inj) 4 mg IV Q8 PRN PRN Reason: Nausea/Vomiting Psyllium Hydrophilic Mucilloid (Hydrocil Instant) 1 pkt PO DAILY [facility] Results - Vital Signs Recent Vital Signs: Last Vital Signs Temp 98.3 F 10/22/17 07:31 Pulse 74 10/22/17 08:35 Resp 19 10/22/17 07:31 BP 171/91 H 10/22/17 08:35 Pulse Ox 98 10/22/17 07:31 - Labs Result Diagrams: 10/22/17 05:30 10/22/17 05:30 Labs: Laboratory Results - last 24 hr 10/21/17 10/22/17 10/22/17 06:40 05:30 05:30 WBC 5.6 RBC 3.38 L Hgb 11.3 L Hct 32.4 L MCV 95.6 H MCH 33.5 H MCHC 35.1 RDW 14.1 Plt Count 199 Sodium 137 Potassium 3.5 L Chloride 105 Carbon Dioxide 26 Anion Gap 10 BUN 13 Creatinine 0.9 Est GFR ( Amer) > 60 Est GFR (Non-Af Amer) > 60 Random Glucose 132 H Hemoglobin A1c 5.6 Calcium 8.5 Phosphorus 2.8 Magnesium 1.9 Assessment & Plan - Assessment and Plan (Free Text) Plan: I personally saw and examined the patient with the resident staff and agree with the above assessment and plan. I personally reviewed the available diagnostic images and imaging reports. Acute on chronic sigmoid diverticulitis with localized perforation and possible colovesicular fistula. HD stable with focal suprapubic peritonitis. Strict NPO. IV Abx and IVF until resolution of anorexia, pain and tenderness on exam. Urology consult, rule out fistula. Will need colonoscopy and gsatrograffin enema study in 6-8 weeks after discharge. Provide rx for fiber supplements, stool softener and laxative on discharge. 14 days of antibiotics total. Send stool cultures. Huang if needed. No acute indication for surgery. Long discussion with patient regarding the severity of his recurrent diverticulitis. Indication for elective sigmoid resection typically include recurrent episodes, which he has had since 2012, and complications of recurrent attacks such as fistula formation. We discussed the importance of treating acute episode medically to prevent need for urgent resection which would result i him having a temporary colostomy. Ideally, we can plan for elective sigmoid resection as outpatient once fistula work-up completed. Stressed the need to have colonoscopy done as he has never had screening colonoscopy in the past despite being advised to do multiple time in the past by other providers. Weight loss is imperative. Smoking cessation. Avoid high fat high carb foods. increase cardiovascular exercise to 30 minutes/ day. Can follow up in [facility] after outpatient colonoscopy for operative planning. - Date & Time Date: 10/19/17
[2017-10-19] MEDS: metroNIDAZOLE 500mg/100ml NS 100 ML IVPB SCH ×2 (12:12→16:20)
[2017-10-19] MEDS: Potassium Chl 40 mEq in D5-1/2 1,000 ML IV SCH ×2 (12:12→18:49)
[2017-10-19] MEDS: Piperacillin/Tazobact 3.375 GM in Sodium Chloride 0.9% 100 ML IVPB SCH ×3 (13:13→21:13)
--- NOTE | 2017-10-19 15:02 | CP.PCM.CON ---
<Malcom Parada - Last Filed: 10/19/17 17:53> History of Present Illness - History of Present Illness History of Present Illness: PGY5 GI Initial Consultation Ramos Maldonado is a 71M w/ hx of diverticulitis, htn, HL who presents to the ER with suprapubic pain. Pt states that the pain started 4-5 days prior and was sharp. He notes that it progressively worsened since onset. Denies any alleviating factors, but notes that urinating aggravates his pain. He also notes fever, chills and diaphoresis prior to arrival. Denies any rectal bleeding , nausea, vomiting or diarrhea. Pt has had previous episodes of diverticulitis with last episode being in 2014. He denies any outpt follow-up with GI for endoscopic evaluation. Denies any weightloss. Pt has a CT of abd upon arrival which revealed acute sigmoid diverticulitis with a probable peribladder abcess and possible fistula between the bladder and the colon. PMHx: see above PSHx: denies SHx: denies tobacco, EtOH, drug use FHx: reviewed and denies any GI related malignancies ROS: 12 point ROS conducted neg other than above Past Patient History - Past Medical History & Family History Past Medical History?: Yes - Past Social History Smoking Status: Never Smoked Drugs: Denies - CARDIAC Hx Hypertension: Yes - PULMONARY Hx Respiratory Disorders: No - NEUROLOGICAL Hx Neurological Disorder: No - HEENT Hx HEENT Problems: No - RENAL Hx Chronic Kidney Disease: No - ENDOCRINE/METABOLIC Hx Endocrine Disorders: No - HEMATOLOGICAL/ONCOLOGICAL Hx Human Immunodeficiency Virus (HIV): No - INTEGUMENTARY Hx Dermatological Problems: No - MUSCULOSKELETAL/RHEUMATOLOGICAL Hx Musculoskeletal Disorders: No Hx Falls: No - GASTROINTESTINAL Hx Gastrointestinal Disorders: Yes Hx Fatty Liver Disease: Yes Hx Pancreatitis: Yes - GENITOURINARY/GYNECOLOGICAL Hx Genitourinary Disorders: No - PSYCHIATRIC Hx Psychophysiologic Disorder: No Hx Substance Use: No - SURGICAL HISTORY Hx Surgeries: No - ANESTHESIA Hx Anesthesia: No Meds Allergies/Adverse Reactions: Allergies Allergy/AdvReac Type Severity Reaction Status Date / Time No Known Allergies Allergy Verified 10/18/17 21:06 - Medications Medications: Current Medications Atenolol (Tenormin) 50 mg PO DAILY [facility] Last Admin: 10/19/17 08:51 Dose: 50 mg Enoxaparin Sodium (Lovenox) 40 mg SC DAILY [facility] PRN Reason: Protocol Last Admin: 10/19/17 08:51 Dose: 40 mg Metronidazole (Flagyl 500mg/100ml Ns) 100 mls @ 100 mls/hr IVPB Q8 [facility] PRN Reason: Protocol Last Admin: 10/19/17 12:12 Dose: 100 mls/hr Potassium Chloride/Dextrose/Sod Cl (Potassium Chl 40 Meq In D5-1/2ns) 1,000 mls @ 125 mls/hr IV .Q8H [facility] Stop: 10/20/17 10:24 Last Admin: 10/19/17 12:12 Dose: 125 mls/hr Piperacillin Sod/Tazobactam (Sod 3.375 gm/ Sodium Chloride) 100 mls @ 100 mls/ hr IVPB Q6 [facility] PRN Reason: Protocol Last Admin: 10/19/17 13:13 Dose: 100 mls/hr Morphine Sulfate (Morphine) 2 mg IVP Q4 PRN PRN Reason: Pain, severe (8-10) Ondansetron HCl (Zofran Inj) 4 mg IV Q8 PRN PRN Reason: Nausea/Vomiting Physical Exam - Constitutional Appears: Well, No Acute Distress - Head Exam Head Exam: ATRAUMATIC, NORMOCEPHALIC - Eye Exam Eye Exam: Normal appearance - ENT Exam ENT Exam: Mucous Membranes Moist, Normal Exam - Neck Exam Neck exam: Positive for: Normal Inspection - Respiratory Exam Respiratory Exam: Clear to Auscultation Bilateral, NORMAL BREATHING PATTERN. absent: Rales, Rhonchi, Wheezes, Respiratory Distress - Cardiovascular Exam Cardiovascular Exam: REGULAR RHYTHM, +S1, +S2 - GI/Abdominal Exam GI & Abdominal Exam: Normal Bowel Sounds, Soft. absent: Guarding, Organomegaly , Rebound, Rigid, Tenderness - Extremities Exam Extremities exam: Negative for: joint swelling, pedal edema - Back Exam Back exam: NORMAL INSPECTION - Neurological Exam Neurological exam: Alert, Oriented x3 - Psychiatric Exam Psychiatric exam: Normal Affect, Normal Mood - Skin Skin Exam: Dry, Intact, Normal Color, Warm Results - Vital Signs Recent Vital Signs: Last Vital Signs Temp 99.5 F 10/19/17 08:20 Pulse 91 H 10/19/17 08:51 Resp 20 10/19/17 08:20 BP 146/79 10/19/17 08:51 Pulse Ox 96 10/19/17 08:20 - Labs Result Diagrams: 10/19/17 07:37 10/19/17 07:37 Labs: Laboratory Results - last 24 hr 10/18/17 10/18/17 10/18/17 22:10 22:12 22:12 WBC 11.8 H D RBC 3.60 L Hgb 12.0 Hct 34.3 L MCV 95.2 H MCH 33.2 H MCHC 34.9 RDW 13.7 Plt Count 145 MPV 7.1 L Neut % (Auto) 86.2 H Lymph % (Auto) 7.2 L [place] % (Auto) 6.0 Eos % (Auto) 0.3 Baso % (Auto) 0.3 Neut # (Auto) 10.2 H Lymph # (Auto) 0.9 L [place] # (Auto) 0.7 Eos # (Auto) 0.0 Baso # (Auto) 0.0 Neutrophils % (Manual) 86 H Band Neutrophils % 1 Lymphocytes % (Manual) 7 L Monocytes % (Manual) 6 Platelet Estimate Normal Anisocytosis (manual) Slight Macrocytosis (manual) Slight pO2 VBG pH VBG pCO2 VBG HCO3 VBG Total CO2 VBG O2 Sat (Calc) VBG Base Excess VBG Potassium Sodium 135 Chloride 98 Glucose Lactate FiO2 Potassium 2.9 L Carbon Dioxide 24 Anion Gap 16 BUN 22 H Creatinine 1.1 Est GFR ( Amer) > 60 Est GFR (Non-Af Amer) > 60 Random Glucose 136 H Calcium 8.2 L Total Bilirubin 1.0 AST 29 ALT 27 Alkaline Phosphatase 94 Total Protein 7.4 Albumin 3.8 Globulin 3.6 Albumin/Globulin Ratio 1.0 Triglycerides Cholesterol LDL Cholesterol Direct HDL Cholesterol Amylase Lipase Vitamin B12 TSH 3rd Generation Venous Blood Potassium Urine Color Aleena Urine Clarity Cloudy Urine pH 6.0 Ur Specific Oden 1.024 Urine Protein >=500 Urine Glucose (UA) Neg Urine Ketones Negative Urine Blood Moderate Urine Nitrate Negative Urine Bilirubin Negative Urine Urobilinogen 0.2-1.0 Ur Leukocyte Esterase Mod Urine RBC (Auto) 21 H Urine WBC Clumps (Auto) Few H Urine Microscopic WBC 378 H Ur Squamous Epith Cells 1 Urine Bacteria Occ H Hyaline Casts 0-2 10/18/17 10/19/17 10/19/17 22:12 07:37 07:37 WBC 7.9 RBC 3.44 L Hgb 11.6 L Hct 32.5 L MCV 94.4 H MCH 33.8 H MCHC 35.8 RDW 13.7 Plt Count 139 MPV Neut % (Auto) Lymph % (Auto) [place] % (Auto) Eos % (Auto) Baso % (Auto) Neut # (Auto) Lymph # (Auto) [place] # (Auto) Eos # (Auto) Baso # (Auto) Neutrophils % (Manual) Band Neutrophils % Lymphocytes % (Manual) Monocytes % (Manual) Platelet Estimate Anisocytosis (manual) Macrocytosis (manual) pO2 37 VBG pH 7.50 H VBG pCO2 36 L VBG HCO3 28.2 VBG Total CO2 29.2 H VBG O2 Sat (Calc) 78.2 H VBG Base Excess 4.9 H VBG Potassium 2.7 L Sodium 133.0 137 Chloride 100.0 101 Glucose 138 H Lactate 0.9 FiO2 21.0 Potassium 3.2 L Carbon Dioxide 24 Anion Gap 15 BUN 22 H Creatinine 1.1 Est GFR ( Amer) > 60 Est GFR (Non-Af Amer) > 60 Random Glucose 128 H Calcium 7.8 L Total Bilirubin 0.7 AST 28 ALT 28 Alkaline Phosphatase 91 Total Protein 7.1 Albumin 3.6 Globulin 3.5 Albumin/Globulin Ratio 1.0 Triglycerides 1184 H Cholesterol 226 H LDL Cholesterol Direct < 30 HDL Cholesterol 15 L Amylase Lipase Vitamin B12 182 L TSH 3rd Generation 7.36 H Venous Blood Potassium 2.7 L Urine Color Urine Clarity Urine pH Ur Specific Oden Urine Protein Urine Glucose (UA) Urine Ketones Urine Blood Urine Nitrate Urine Bilirubin Urine Urobilinogen Ur Leukocyte Esterase Urine RBC (Auto) Urine WBC Clumps (Auto) Urine Microscopic WBC Ur Squamous Epith Cells Urine Bacteria Hyaline Casts 10/19/17 11:09 WBC RBC Hgb Hct MCV MCH MCHC RDW Plt Count MPV Neut % (Auto) Lymph % (Auto) [place] % (Auto) Eos % (Auto) Baso % (Auto) Neut # (Auto) Lymph # (Auto) [place] # (Auto) Eos # (Auto) Baso # (Auto) Neutrophils % (Manual) Band Neutrophils % Lymphocytes % (Manual) Monocytes % (Manual) Platelet Estimate Anisocytosis (manual) Macrocytosis (manual) pO2 VBG pH VBG pCO2 VBG HCO3 VBG Total CO2 VBG O2 Sat (Calc) VBG Base Excess VBG Potassium Sodium Chloride Glucose Lactate FiO2 Potassium Carbon Dioxide Anion Gap BUN Creatinine Est GFR ( Amer) Est GFR (Non-Af Amer) Random Glucose Calcium Total Bilirubin AST ALT Alkaline Phosphatase Total Protein Albumin Globulin Albumin/Globulin Ratio Triglycerides Cholesterol LDL Cholesterol Direct HDL Cholesterol Amylase 50 Lipase 73 Vitamin B12 TSH 3rd Generation Venous Blood Potassium Urine Color Urine Clarity Urine pH Ur Specific Oden Urine Protein Urine Glucose (UA) Urine Ketones Urine Blood Urine Nitrate Urine Bilirubin Urine Urobilinogen Ur Leukocyte Esterase Urine RBC (Auto) Urine WBC Clumps (Auto) Urine Microscopic WBC Ur Squamous Epith Cells Urine Bacteria Hyaline Casts Assessment & Plan - Assessment and Plan (Free Text) Assessment: Ramos Maldonado is a 71M w/ hx of diverticulitis, htn, HL who presents to the ER with suprapubic pain. Complicated Acute Sigmoid diverticulitis with abscess Peribladder abscess Possible colovesicular fistula hx of diverticulitis Plan: -continue abx as per surgery -continue IV fluids -diet as per urology and surgery pending any procedure -may need to consider repeat CT abd/Pel w/ PO or rectal contrast -colonoscopy is high risk and may serve as a perforation risk at this time -additional w/u as per urology and surgery -will need an outpt full colonoscopy for screening and evaluation post diverticulitis in 6-8 weeks will D/W Dr. Lin <Joe Lin Y - Last Filed: 10/19/17 18:01> Meds - Medications Medications: Current Medications Acetaminophen (Tylenol 325mg Tab) 650 mg PO Q4 PRN PRN Reason: Fever >100.4 F Last Admin: 10/19/17 16:43 Dose: 650 mg Atenolol (Tenormin) 50 mg PO DAILY [facility] Last Admin: 10/19/17 08:51 Dose: 50 mg Enoxaparin Sodium (Lovenox) 40 mg SC DAILY [facility] PRN Reason: Protocol Last Admin: 10/19/17 08:51 Dose: 40 mg Metronidazole (Flagyl 500mg/100ml Ns) 100 mls @ 100 mls/hr IVPB Q8 [facility] PRN Reason: Protocol Last Admin: 10/19/17 16:20 Dose: 100 mls/hr Potassium Chloride/Dextrose/Sod Cl (Potassium Chl 40 Meq In D5-1/2ns) 1,000 mls @ 125 mls/hr IV .Q8H [facility] Stop: 10/20/17 10:24 Last Admin: 10/19/17 12:12 Dose: 125 mls/hr Piperacillin Sod/Tazobactam (Sod 3.375 gm/ Sodium Chloride) 100 mls @ 100 mls/ hr IVPB Q6 [facility] PRN Reason: Protocol Last Admin: 10/19/17 16:20 Dose: 100 mls/hr Morphine Sulfate (Morphine) 2 mg IVP Q4 PRN PRN Reason: Pain, severe (8-10) Ondansetron HCl (Zofran Inj) 4 mg IV Q8 PRN PRN Reason: Nausea/Vomiting Results - Vital Signs Recent Vital Signs: Last Vital Signs Temp 99 F 10/19/17 17:43 Pulse 83 10/19/17 17:54 Resp 17 10/19/17 17:54 BP 148/84 10/19/17 17:54 Pulse Ox 96 10/19/17 17:54 - Labs Result Diagrams: 10/19/17 07:37 10/19/17 07:37 Labs: Laboratory Results - last 24 hr 10/18/17 10/18/17 10/18/17 22:10 22:12 22:12 WBC 11.8 H D RBC 3.60 L Hgb 12.0 Hct 34.3 L MCV 95.2 H MCH 33.2 H MCHC 34.9 RDW 13.7 Plt Count 145 MPV 7.1 L Neut % (Auto) 86.2 H Lymph % (Auto) 7.2 L [place] % (Auto) 6.0 Eos % (Auto) 0.3 Baso % (Auto) 0.3 Neut # (Auto) 10.2 H Lymph # (Auto) 0.9 L [place] # (Auto) 0.7 Eos # (Auto) 0.0 Baso # (Auto) 0.0 Neutrophils % (Manual) 86 H Band Neutrophils % 1 Lymphocytes % (Manual) 7 L Monocytes % (Manual) 6 Platelet Estimate Normal Anisocytosis (manual) Slight Macrocytosis (manual) Slight pO2 VBG pH VBG pCO2 VBG HCO3 VBG Total CO2 VBG O2 Sat (Calc) VBG Base Excess VBG Potassium Sodium 135 Chloride 98 Glucose Lactate FiO2 Potassium 2.9 L Carbon Dioxide 24 Anion Gap 16 BUN 22 H Creatinine 1.1 Est GFR ( Amer) > 60 Est GFR (Non-Af Amer) > 60 Random Glucose 136 H Calcium 8.2 L Total Bilirubin 1.0 AST 29 ALT 27 Alkaline Phosphatase 94 Total Protein 7.4 Albumin 3.8 Globulin 3.6 Albumin/Globulin Ratio 1.0 Triglycerides Cholesterol LDL Cholesterol Direct HDL Cholesterol Amylase Lipase Vitamin B12 TSH 3rd Generation Venous Blood Potassium Urine Color Aleena Urine Clarity Cloudy Urine pH 6.0 Ur Specific [place] 1.024 Urine Protein >=500 Urine Glucose (UA) Neg Urine Ketones Negative Urine Blood Moderate Urine Nitrate Negative Urine Bilirubin Negative Urine Urobilinogen 0.2-1.0 Ur Leukocyte Esterase Mod Urine RBC (Auto) 21 H Urine WBC Clumps (Auto) Few H Urine Microscopic WBC 378 H Ur Squamous Epith Cells 1 Urine Bacteria Occ H Hyaline Casts 0-2 10/18/17 10/19/17 10/19/17 22:12 07:37 07:37 WBC 7.9 RBC 3.44 L Hgb 11.6 L Hct 32.5 L MCV 94.4 H MCH 33.8 H MCHC 35.8 RDW 13.7 Plt Count 139 MPV Neut % (Auto) Lymph % (Auto) [place] % (Auto) Eos % (Auto) Baso % (Auto) Neut # (Auto) Lymph # (Auto) [place] # (Auto) Eos # (Auto) Baso # (Auto) Neutrophils % (Manual) Band Neutrophils % Lymphocytes % (Manual) Monocytes % (Manual) Platelet Estimate Anisocytosis (manual) Macrocytosis (manual) pO2 37 VBG pH 7.50 H VBG pCO2 36 L VBG HCO3 28.2 VBG Total CO2 29.2 H VBG O2 Sat (Calc) 78.2 H VBG Base Excess 4.9 H VBG Potassium 2.7 L Sodium 133.0 137 Chloride 100.0 101 Glucose 138 H Lactate 0.9 FiO2 21.0 Potassium 3.2 L Carbon Dioxide 24 Anion Gap 15 BUN 22 H Creatinine 1.1 Est GFR ( Amer) > 60 Est GFR (Non-Af Amer) > 60 Random Glucose 128 H Calcium 7.8 L Total Bilirubin 0.7 AST 28 ALT 28 Alkaline Phosphatase 91 Total Protein 7.1 Albumin 3.6 Globulin 3.5 Albumin/Globulin Ratio 1.0 Triglycerides 1184 H Cholesterol 226 H LDL Cholesterol Direct < 30 HDL Cholesterol 15 L Amylase Lipase Vitamin B12 182 L TSH 3rd Generation 7.36 H Venous Blood Potassium 2.7 L Urine Color Urine Clarity Urine pH Ur Specific [place]den Urine Protein Urine Glucose (UA) Urine Ketones Urine Blood Urine Nitrate Urine Bilirubin Urine Urobilinogen Ur Leukocyte Esterase Urine RBC (Auto) Urine WBC Clumps (Auto) Urine Microscopic WBC Ur Squamous Epith Cells Urine Bacteria Hyaline Casts 10/19/17 11:09 WBC RBC Hgb Hct MCV MCH MCHC RDW Plt Count MPV Neut % (Auto) Lymph % (Auto) [place] % (Auto) Eos % (Auto) Baso % (Auto) Neut # (Auto) Lymph # (Auto) [place] # (Auto) Eos # (Auto) Baso # (Auto) Neutrophils % (Manual) Band Neutrophils % Lymphocytes % (Manual) Monocytes % (Manual) Platelet Estimate Anisocytosis (manual) Macrocytosis (manual) pO2 VBG pH VBG pCO2 VBG HCO3 VBG Total CO2 VBG O2 Sat (Calc) VBG Base Excess VBG Potassium Sodium Chloride Glucose Lactate FiO2 Potassium Carbon Dioxide Anion Gap BUN Creatinine Est GFR ( Amer) Est GFR (Non-Af Amer) Random Glucose Calcium Total Bilirubin AST ALT Alkaline Phosphatase Total Protein Albumin Globulin Albumin/Globulin Ratio Triglycerides Cholesterol LDL Cholesterol Direct HDL Cholesterol Amylase 50 Lipase 73 Vitamin B12 TSH 3rd Generation Venous Blood Potassium Urine Color Urine Clarity Urine pH Ur Specific [place] Urine Protein Urine Glucose (UA) Urine Ketones Urine Blood Urine Nitrate Urine Bilirubin Urine Urobilinogen Ur Leukocyte Esterase Urine RBC (Auto) Urine WBC Clumps (Auto) Urine Microscopic WBC Ur Squamous Epith Cells Urine Bacteria Hyaline Casts Attending/Attestation - Attestation I have personally seen and examined this patient.: Yes I have fully participated in the care of the patient.: Yes I have reviewed all pertinent clinical information: Yes Notes (Text): 10/19/17 17:55 I have seen and examined patient with GI fellow. Agree with above documentation with the following additions. In brief, this is a 71 year old male with history of HTN, hyperlipidemia, diverticulitis who presents to hospital with complaint of progressive abdominal pain. He describes a sharp, 8/ 10 intensity LLQ abdominal pain which began 4 days ago. The pain was associated initially with nausea and vomiting and exacerbated by urination. Since arrival to hospital his abdominal pain has improved but he now reports fever. He denies weight loss, rectal bleeding, change in bowel habits, or fecal content when urinating. No prior endoscopic evaluation. Review of vitals from today shows tmax of 101.5. HTN Hyperlipidemia Abdominal pain - acute sigmoid diverticulitis, complicated by presence of dwight- colonic abscess CT imaging reviewed by me showing 3.8 x 2 cm dwight-colonic fluid collection along with air in urinary bladder suggestive of colovesicular fistula - NPO - Continue with antibiotic therapy - Obtain blood cultures - Follow up surgical and urology recommendations - Further MRI can be performed following resolution of acute diverticulitis for more optimal evaluation of fistula - Can consider IR guided drainage if patient does not improve, however currently not indicated - Patient requires elective outpatient colonoscopy within 2 months following resolution of acute symptoms - Will continue to monitor patient clinical course
[2017-10-20] MEDS: metroNIDAZOLE 500mg/100ml NS 100 ML IVPB SCH ×3 (00:19→16:43)
[2017-10-20] MEDS: Potassium Chl 40 mEq in D5-1/2 1,000 ML IV SCH (01:52)
[2017-10-20] MEDS: Piperacillin/Tazobact 3.375 GM in Sodium Chloride 0.9% 100 ML IVPB SCH ×2 (03:12→09:48)
[2017-10-20 06:37] LABS: HEMOGLOBIN 11.5 g/dL (12.0-18.0); MEAN CELL VOLUME 96.3 fl (80.0-94.0); MEAN CORPUSCULAR HEMOGLOBIN 33.6 pg (27.0-31.0); RBC 3.41 Mil/uL (4.40-5.90); WHITE BLOOD COUNT 4.8 K/uL (4.8-10.8)
--- NOTE | 2017-10-20 07:08 | PQF ---
PROVIDER RESPONSE TEXT: [employer] REVIEWER QUERY TEXT: Clarification of Clinical Diagnostic Findings Please clarify documentation or clinical relevance for the clinical / diagnostic findings or whether those are insignificant or unable to be further specified. Potassium level 2.9--> 3.2. The patient's Clinical Indicators include: K level 2.9 --> 3.2 Medication includes: Potassium supplementation Query created by: Adrianne Leslie 10/19/2017 1:26 PM Electronically signed by: Aleksandar Kendall 10/20/2017 7:04 AM
[2017-10-20 07:49] LABS: ALB/GLOB RATIO 1.1 (1.0-2.1); ALBUMIN 3.3 g/dL (3.5-5.0); ALT/SGPT 33 U/L (21-72); AST/SGOT 40 U/L (17-59); BLOOD UREA NITROGEN 16 mg/dl (9-20); GFR AFRICAN-AMERICAN > 60; GFR NON-AFRICAN AMERICAN > 60
--- NOTE | 2017-10-20 07:51 | CP.PCM.PN ---
<Juan Goddard - Last Filed: 10/20/17 19:18> Subjective - Date & Time of Evaluation Date of Evaluation: 10/20/17 Time of Evaluation: 07:51 - Subjective Subjective: 71 y/o M evaluated and examined by bedside with Dr Kendall. Pt reports feeling better, his abdominal pain and distension have improved. Pt had fever last afternoon and this morning, controlled with PO Tylenol. No acute events overnight. Pt tolerating PO liquid diet. Objective - Vital Signs/Intake and Output Vital Signs (last 24 hours): Temp Pulse Resp BP Pulse Ox 98.6 F 88 19 150/78 99 10/20/17 01:19 10/20/17 00:12 10/20/17 00:12 10/20/17 00:12 10/20/17 00:12 Intake and Output: 10/20/17 10/20/17 06:59 18:59 Intake Total 1650 Output Total 900 Balance 750 - Medications Medications: Current Medications Acetaminophen (Tylenol 325mg Tab) 650 mg PO Q4 PRN PRN Reason: Fever >100.4 F Last Admin: 10/20/17 00:19 Dose: 650 mg Atenolol (Tenormin) 50 mg PO DAILY [facility] Last Admin: 10/19/17 08:51 Dose: 50 mg Cyanocobalamin (Vitamin B12 1000 Mcg/Ml Inj) 1,000 mcg IM DAILY [facility] Enoxaparin Sodium (Lovenox) 40 mg SC DAILY [facility] PRN Reason: Protocol Last Admin: 10/19/17 08:51 Dose: 40 mg Fenofibrate (Tricor) 145 mg PO DAILY [facility] Metronidazole (Flagyl 500mg/100ml Ns) 100 mls @ 100 mls/hr IVPB Q8 [facility] PRN Reason: Protocol Last Admin: 10/20/17 00:19 Dose: 100 mls/hr Potassium Chloride/Dextrose/Sod Cl (Potassium Chl 40 Meq In D5-1/2ns) 1,000 mls @ 125 mls/hr IV .Q8H [facility] Stop: 10/20/17 10:24 Last Admin: 10/20/17 01:52 Dose: 125 mls/hr Piperacillin Sod/Tazobactam (Sod 3.375 gm/ Sodium Chloride) 100 mls @ 100 mls/ hr IVPB Q6 [facility] PRN Reason: Protocol Last Admin: 10/20/17 03:12 Dose: 100 mls/hr Levothyroxine Sodium (Synthroid) 25 mcg PO DAILY@0630 [facility] Morphine Sulfate (Morphine) 2 mg IVP Q4 PRN PRN Reason: Pain, severe (8-10) Ondansetron HCl (Zofran Inj) 4 mg IV Q8 PRN PRN Reason: Nausea/Vomiting - Labs Labs: 10/19/17 07:37 10/20/17 06:00 - Constitutional Appears: No Acute Distress - Head Exam Head Exam: ATRAUMATIC, NORMAL INSPECTION - Eye Exam Eye Exam: EOMI, Normal appearance - Neck Exam Neck Exam: Full ROM, Normal Inspection - Respiratory Exam Respiratory Exam: NORMAL BREATHING PATTERN - Cardiovascular Exam Cardiovascular Exam: +S1, +S2 - GI/Abdominal Exam GI & Abdominal Exam: Distended, Soft. absent: Guarding, Tenderness - Extremities Exam Extremities Exam: Full ROM, Normal Inspection. absent: Calf Tenderness - Neurological Exam Neurological Exam: Alert, Awake Assessment and Plan - Assessment and Plan (Free Text) Assessment: 71 y/o M with a PMHx of HTN and acute pancreatitis in 2014, admitted for evaluation of acute sigmoid diverticulitis, ?colovesicular fistula, ?sigmoid/ bladder abscess. -Continue with IV metronidazole and Zosyn -Due to dominant hypertriglyceridemia on lipid panel, Fenofibrate POdaily was initiated. -After reviewing labs and identifying HLD and elevated fasting glucose level, HbA1c ordered. -Vitamin B12 deficiency on labs, IM Cyanocobalamin daily initiated -TSH elevated, levothyroxine 25 mcg initiated today. -GI on board, Dr Lin -F/U urology recommendations, possible cystoscopy. -Blood Cx preliminary negative after 24 hours. -On liquid diet since this morning. -Lovenox for DVT prophylaxis. As per GI, colonoscopy should be performed 2 months after resolution of acute symptoms, consider IR guided drainage if no clinical improvement, MRI after resolution of diverticulitis for optimal visualization of fistula. <Aleksandar Kendall - Last Filed: 10/21/17 08:54> Objective - Vital Signs/Intake and Output Vital Signs (last 24 hours): Temp Pulse Resp BP Pulse Ox 97.9 F 88 20 110/71 95 10/21/17 08:11 10/21/17 08:11 10/21/17 08:11 10/21/17 08:11 10/21/17 08:11 Intake and Output: 10/21/17 10/21/17 06:59 18:59 Intake Total 200 Balance 200 - Medications Medications: Current Medications Acetaminophen (Tylenol 325mg Tab) 650 mg PO Q4 PRN PRN Reason: Fever >100.4 F Last Admin: 10/20/17 08:33 Dose: 650 mg Atenolol (Tenormin) 50 mg PO DAILY [facility] Last Admin: 10/21/17 07:19 Dose: 50 mg Cyanocobalamin (Vitamin B12 1000 Mcg/Ml Inj) 1,000 mcg IM DAILY [facility] Last Admin: 10/20/17 08:35 Dose: 1,000 mcg Enoxaparin Sodium (Lovenox) 40 mg SC DAILY [facility] PRN Reason: Protocol Last Admin: 10/20/17 08:35 Dose: 40 mg Fenofibrate (Tricor) 145 mg PO DAILY [facility] Last Admin: 10/20/17 08:34 Dose: 145 mg Hydromorphone HCl (Dilaudid) 0.5 mg IVP Q5M PRN PRN Reason: Pain, moderate (4-7) Stop: 10/21/17 10:36 Metronidazole (Flagyl 500mg/100ml Ns) 100 mls @ 100 mls/hr IVPB Q8 [facility] PRN Reason: Protocol Last Admin: 10/21/17 00:34 Dose: 100 mls/hr Potassium Chloride/Dextrose/Sod Cl (Potassium Chl 20 Meq In D5-1/2ns) 1,000 mls @ 125 mls/hr IV .Q8H [facility] Last Admin: 10/21/17 05:06 Dose: 125 mls/hr Meropenem 1 gm/ Sodium (Chloride) 100 mls @ 100 mls/hr IVPB Q8@0430,1230,2030 [facility] PRN Reason: Protocol Last Admin: 10/21/17 03:32 Dose: 100 mls/hr Iohexol (Omnipaque 240 (50 Ml)) 50 ml PO ONCE ONE Stop: 10/21/17 12:24 Levothyroxine Sodium (Synthroid) 25 mcg PO DAILY@0630 [facility] Last Admin: 10/21/17 06:09 Dose: Not Given Morphine Sulfate (Morphine) 2 mg IVP Q4 PRN PRN Reason: Pain, severe (8-10) Ondansetron HCl (Zofran Inj) 4 mg IV Q8 PRN PRN Reason: Nausea/Vomiting Ondansetron HCl (Zofran Inj) 4 mg IVP ONCE PRN PRN Reason: Nausea/Vomiting Stop: 10/21/17 10:37 - Labs Labs: 10/21/17 05:40 10/21/17 05:40 Assessment and Plan - Assessment and Plan (Free Text) Plan: Patient was personally seen and examined by me in rounds with residents. Available labs and diagnostic data reviewed. Case, Patient's condition and management plan discussed with residents in rounds. Agree with resident's progress note. Plan: As ordered.
[2017-10-20] MEDS: Enoxaparin 40 mg Syringe SC SCH (08:35)
--- NOTE | 2017-10-20 12:23 | CP.PCM.PN ---
<Daniel Mortensen - Last Filed: 10/20/17 12:37> Subjective - Date & Time of Evaluation Date of Evaluation: 10/20/17 Time of Evaluation: 06:45 - Subjective Subjective: General Surgery Pt seen and examined this AM. Abdominal pain and dysuria are improving from yesterday. Febrile to 102.1 this morning. Denies headache, nausea, vomiting, SOB , diarrhea. Objective - Vital Signs/Intake and Output Vital Signs (last 24 hours): Temp Pulse Resp BP Pulse Ox 99.6 F 72 20 152/84 H 100 10/20/17 09:33 10/20/17 08:34 10/20/17 08:05 10/20/17 08:34 10/20/17 08:05 Intake and Output: 10/20/17 10/20/17 06:59 18:59 Intake Total 1650 Output Total 900 Balance 750 - Medications Medications: Current Medications Acetaminophen (Tylenol 325mg Tab) 650 mg PO Q4 PRN PRN Reason: Fever >100.4 F Last Admin: 10/20/17 08:33 Dose: 650 mg Atenolol (Tenormin) 50 mg PO DAILY [facility] Last Admin: 10/20/17 08:34 Dose: 50 mg Cyanocobalamin (Vitamin B12 1000 Mcg/Ml Inj) 1,000 mcg IM DAILY [facility] Last Admin: 10/20/17 08:35 Dose: 1,000 mcg Enoxaparin Sodium (Lovenox) 40 mg SC DAILY [facility] PRN Reason: Protocol Last Admin: 10/20/17 08:35 Dose: 40 mg Fenofibrate (Tricor) 145 mg PO DAILY [facility] Last Admin: 10/20/17 08:34 Dose: 145 mg Metronidazole (Flagyl 500mg/100ml Ns) 100 mls @ 100 mls/hr IVPB Q8 [facility] PRN Reason: Protocol Last Admin: 10/20/17 08:36 Dose: 100 mls/hr Piperacillin Sod/Tazobactam (Sod 3.375 gm/ Sodium Chloride) 100 mls @ 100 mls/ hr IVPB Q6 [facility] PRN Reason: Protocol Last Admin: 10/20/17 09:48 Dose: 100 mls/hr Levothyroxine Sodium (Synthroid) 25 mcg PO DAILY@0630 [facility] Morphine Sulfate (Morphine) 2 mg IVP Q4 PRN PRN Reason: Pain, severe (8-10) Ondansetron HCl (Zofran Inj) 4 mg IV Q8 PRN PRN Reason: Nausea/Vomiting - Labs Labs: 10/20/17 06:00 10/20/17 06:00 - Constitutional Appears: Non-toxic, No Acute Distress - Head Exam Head Exam: ATRAUMATIC, NORMOCEPHALIC - Eye Exam Eye Exam: EOMI. absent: Scleral icterus - Respiratory Exam Respiratory Exam: NORMAL BREATHING PATTERN. absent: Respiratory Distress - Cardiovascular Exam Cardiovascular Exam: RRR, +S1, +S2 - GI/Abdominal Exam GI & Abdominal Exam: Soft, Tenderness (in LLQ). absent: Distended, Firm, Guarding, Rigid, Rebound - Extremities Exam Extremities Exam: Normal Capillary Refill. absent: Calf Tenderness - Back Exam Back Exam: absent: CVA tenderness (L), CVA tenderness (R) - Neurological Exam Neurological Exam: Alert, Awake, Oriented x3 - Skin Skin Exam: Dry, Warm Assessment and Plan - Assessment and Plan (Free Text) Assessment: 71M with recurrent, complicated sigmoid diverticulitis and possible colovesicular fistula Plan: -Continue strict NPO - Zosyn/Flagyl - Replete electrolytes PRN - Urine Cx with no growth - F/U stool, blood Cx - F/U Urology, cysto likely tomorrow - F/U GI recs; will need colonoscopy in 6-8wks Will D/W Dr. Tal Mortensen PGY4 <Tia Parada - Last Filed: 10/22/17 11:24> Objective - Vital Signs/Intake and Output Vital Signs (last 24 hours): Temp Pulse Resp BP Pulse Ox 98.3 F 74 19 171/91 H 98 10/22/17 07:31 10/22/17 08:35 10/22/17 07:31 10/22/17 08:35 10/22/17 07:31 Intake and Output: 10/22/17 10/22/17 06:59 18:59 Intake Total 1450 Balance 1450 - Medications Medications: Current Medications Acetaminophen (Tylenol 325mg Tab) 650 mg PO Q4 PRN PRN Reason: Fever >100.4 F Last Admin: 10/20/17 08:33 Dose: 650 mg Atenolol (Tenormin) 50 mg PO DAILY [facility] Last Admin: 10/22/17 08:35 Dose: 50 mg Cyanocobalamin (Vitamin B12 1000 Mcg/Ml Inj) 1,000 mcg IM DAILY [facility] Last Admin: 10/22/17 08:36 Dose: 1,000 mcg Docusate Sodium (Colace) 100 mg PO BID [facility] Last Admin: 10/22/17 10:18 Dose: 100 mg Enoxaparin Sodium (Lovenox) 40 mg SC DAILY [facility] PRN Reason: Protocol Last Admin: 10/22/17 10:18 Dose: 40 mg Fenofibrate (Tricor) 145 mg PO DAILY [facility] Last Admin: 10/22/17 08:35 Dose: 145 mg Metronidazole (Flagyl 500mg/100ml Ns) 100 mls @ 100 mls/hr IVPB Q8 [facility] PRN Reason: Protocol Last Admin: 10/22/17 08:36 Dose: 100 mls/hr Potassium Chloride/Dextrose/Sod Cl (Potassium Chl 20 Meq In D5-1/2ns) 1,000 mls @ 125 mls/hr IV .Q8H [facility] Last Admin: 10/22/17 10:42 Dose: 125 mls/hr Meropenem 1 gm/ Sodium (Chloride) 100 mls @ 100 mls/hr IVPB Q8@0430,1230,2030 [facility] PRN Reason: Protocol Last Admin: 10/22/17 04:13 Dose: 100 mls/hr Levothyroxine Sodium (Synthroid) 25 mcg PO DAILY@0630 [facility] Last Admin: 10/22/17 06:18 Dose: 25 mcg Morphine Sulfate (Morphine) 2 mg IVP Q4 PRN PRN Reason: Pain, severe (8-10) Ondansetron HCl (Zofran Inj) 4 mg IV Q8 PRN PRN Reason: Nausea/Vomiting Psyllium Hydrophilic Mucilloid (Hydrocil Instant) 1 pkt PO DAILY [facility] - Labs Labs: 10/22/17 05:30 10/22/17 05:30
[2017-10-20] MEDS ORDERED: Potassium Ch 20mEq in D5-1/2NS 1,000 ML IV SCH (12:45)
[2017-10-20] MEDS: Meropenem 500 MG in Sodium Chloride 0.9% 100 ML IVPB SCH ×2 (13:28→16:47)
[2017-10-20] MEDS: Potassium Ch 20mEq in D5-1/2NS 1,000 ML IV SCH (13:30)
--- NOTE | 2017-10-20 18:12 | CP.PCM.CON ---
History of Present Illness - History of Present Illness History of Present Illness: 71 y/o M presented to the ED on 10/18 c/o suprapubic abd pain. Pt states pain started Tuesday, assoc w/ nausea, NBNB vomiting, subjective F/C. Pt reports having similar pain 5 yr ago when he was Dx and Tx non-operatively for diverticulitis. Pt denies ever seeing foxing closer or having EGD/ colonoscopy completed. Pt admits to dysuria, frequency, and odor w/ urination, which started concurrently w/ pain. was started on empirivc IV antibiotics and referred for ID eval due to persistent fever Going for Cysto in AM PMHx: w/ PMHx of HTN, HLD, pancreatitis NKDA PSHx: denies SHx: denies tobacco, EtOH, drug use FHx: noncontributory. Review of Systems - Review of Systems All systems: reviewed and no additional remarkable complaints except - Constitutional Constitutional: As Per HPI - EENT Eyes: absent: As Per HPI, Blind Spots, Blurred Vision, Change in Vision, Decreased Night Vision, Diplopia, Discharge, Dry Eye, Exophthalmos, Floaters, Irritation, Itchy Eyes, Loss of Peripheral Vision, Pain, Photophobia, Requires Corrective Lenses, Sees Flashes, Spots in Vision, Tunnel Vision, Other Visual Disturbances, Loss of Vision, Other Ears: absent: As Per HPI, Decreased Hearing, Ear Discharge, Ear Pain, Tinnitus, Abnormal Hearing, Disequilibrium, Dizziness, Other Nose/Mouth/Throat: absent: As Per HPI, Epistaxis, Nasal Congestion, Nasal Discharge, Nasal Obstruction, Nasal Trauma, Nose Pain, Post Nasal Drip, Sinus Pain, Sinus Pressure, Bleeding Gums, Change in Voice, Dental Pain, Dry Mouth, Dysphagia, Halitosis, Hoarsness, Lip Swelling, Mouth Lesions, Mouth Pain, Odynophagia, Sore Throat, Throat Swelling, Tongue Swelling, Facial Pain, Neck Pain, Neck Mass, Other - Cardiovascular Cardiovascular: absent: As Per HPI, Acrocyanosis, Chest Pain, Chest Pain at Rest , Chest Pain with Activity, Claudication, Diaphoresis, Dyspnea, Dyspnea on Exertion, Edema, Irregular Heart Rhythm, Pain Radiating to Arm/Neck/Jaw, Leg Edema, Leg Ulcers, Lightheadedness, Orthopnea, Palpitations, Paroxysmal Nocturnal Dyspnea, Pedal Edema, Radiating Pain, Rapid Heart Rate, Slow Heart Rate, Syncope, Other - Respiratory Respiratory: absent: As Per HPI, Cough, Dyspnea, Hemoptysis, Dyspnea on Exertion , Wheezing, Snoring, Stridor, Pain on Inspiration, Chest Congestion, Excessive Mucous Production, Change in Mucous Color, Pain with Coughing, Other - Gastrointestinal Gastrointestinal: As Per HPI, Abdominal Pain - Genitourinary Genitourinary: As Per HPI, Difficulty Urinating, Dysuria - Musculoskeletal Musculoskeletal: absent: As Per HPI, Abnormal Gait, Arthralgias, Atrophy, Back Pain, Deformity, Joint Swelling, Limited Range of Motion, Loss of Height, Muscle Cramps, Muscle Weakness, Myalgias, Neck Pain, Numbness, Radiating Pain into Limb, Stiffness, Tingling, Other - Integumentary Integumentary: absent: As Per HPI, Acne, Alopecia, Bleeding Lesions, Change in Hair, Change in Nails, Change in Pigmentation, Changing Lesions, Dry Skin, Erythema, Furuncle, Hirsutism, Lesions, New Lesions, Non-Healing Lesions, Photosensitivity, Pruritus, Rash, Skin Pain, Skin Ulcer, Sores, Striae, Swelling , Unusual Bruising, Wounds, Jaundice, Other - Neurological Neurological: absent: As Per HPI, Abnormal Gait, Abnormal Hearing, Abnormal Movements, Abnormal Speech, Behavioral Changes, Burning Sensations, Confusion, Convulsions, Disequilibrium, Dizziness, Numbness, Focal Weakness, Frequent Falls , Headaches, Lack of Coordination, Loss of Vision, Memory Loss, Paresthesias, Radicular Pain, Restless Legs, Sensory Deficit, Syncope, Tingling, Tremor, Vertigo, Weakness, Other Visual Disturbances, Other - Psychiatric Psychiatric: absent: As Per HPI, Abnormal Sleep Pattern, Anhedonia, Anxiety, Auditory Hallucinations, Behavioral Changes, Change in Appetite, Change in Libido, Confusion, Depression, Difficulty Concentrating, Hallucinations, Homicidal Ideation, Hopelessness, Irritability, Memory Loss, Mood Swings, Panic Attacks, Paranoia, Suicidal Ideation, Visual Hallucinations, Tactile Hallucinations, Other - Endocrine Endocrine: absent: As Per HPI, Change in Body Appearance, Change in Libido, Cold Intolorance, Deepening of Voice, Excessive Sweating, Fatigue, Flushing, Heat Intolorance, Increase in Ring/Shoe/Hat Size, Palpitations, Polydipsia, Polyphagia, Polyuria, Other - Hematologic/Lymphatic Hematologic: absent: As Per HPI, Easy Bleeding, Easy Bruising, Lymphadenopathy, Other Past Patient History - Past Medical History & Family History Past Medical History?: Yes - Past Social History Smoking Status: Never Smoked Drugs: Denies - CARDIAC Hx Hypertension: Yes - PULMONARY Hx Respiratory Disorders: No - NEUROLOGICAL Hx Neurological Disorder: No - HEENT Hx HEENT Problems: No - RENAL Hx Chronic Kidney Disease: No - ENDOCRINE/METABOLIC Hx Endocrine Disorders: No - HEMATOLOGICAL/ONCOLOGICAL Hx Human Immunodeficiency Virus (HIV): No - INTEGUMENTARY Hx Dermatological Problems: No - MUSCULOSKELETAL/RHEUMATOLOGICAL Hx Musculoskeletal Disorders: No Hx Falls: No - GASTROINTESTINAL Hx Gastrointestinal Disorders: Yes Hx Fatty Liver Disease: Yes Hx Pancreatitis: Yes - GENITOURINARY/GYNECOLOGICAL Hx Genitourinary Disorders: No - PSYCHIATRIC Hx Psychophysiologic Disorder: No Hx Substance Use: No - SURGICAL HISTORY Hx Surgeries: No - ANESTHESIA Hx Anesthesia: No Meds Allergies/Adverse Reactions: Allergies Allergy/AdvReac Type Severity Reaction Status Date / Time No Known Allergies Allergy Verified 10/18/17 21:06 - Medications Medications: Current Medications Acetaminophen (Tylenol 325mg Tab) 650 mg PO Q4 PRN PRN Reason: Fever >100.4 F Last Admin: 10/20/17 08:33 Dose: 650 mg Atenolol (Tenormin) 50 mg PO DAILY [facility] Last Admin: 10/20/17 08:34 Dose: 50 mg Cyanocobalamin (Vitamin B12 1000 Mcg/Ml Inj) 1,000 mcg IM DAILY [facility] Last Admin: 10/20/17 08:35 Dose: 1,000 mcg Enoxaparin Sodium (Lovenox) 40 mg SC DAILY [facility] PRN Reason: Protocol Last Admin: 10/20/17 08:35 Dose: 40 mg Fenofibrate (Tricor) 145 mg PO DAILY [facility] Last Admin: 10/20/17 08:34 Dose: 145 mg Metronidazole (Flagyl 500mg/100ml Ns) 100 mls @ 100 mls/hr IVPB Q8 [facility] PRN Reason: Protocol Last Admin: 10/20/17 16:43 Dose: 100 mls/hr Meropenem 500 mg/ Sodium (Chloride) 100 mls @ 100 mls/hr IVPB Q8 [facility] PRN Reason: Protocol Last Admin: 10/20/17 16:47 Dose: 100 mls/hr Potassium Chloride/Dextrose/Sod Cl (Potassium Chl 20 Meq In D5-1/2ns) 1,000 mls @ 125 mls/hr IV .Q8H [facility] Last Admin: 10/20/17 13:30 Dose: 125 mls/hr Iohexol (Omnipaque 240 (50 Ml)) 50 ml PO ONCE ONE Stop: 10/21/17 12:24 Levothyroxine Sodium (Synthroid) 25 mcg PO DAILY@0630 [facility] Morphine Sulfate (Morphine) 2 mg IVP Q4 PRN PRN Reason: Pain, severe (8-10) Ondansetron HCl (Zofran Inj) 4 mg IV Q8 PRN PRN Reason: Nausea/Vomiting Physical Exam - Constitutional Appears: Non-toxic, Chronically Ill - Head Exam Head Exam: NORMOCEPHALIC - Eye Exam Eye Exam: PERRL. absent: Scleral icterus - ENT Exam ENT Exam: Mucous Membranes Dry, Normal External Ear Exam - Neck Exam Neck exam: Negative for: Lymphadenopathy - Respiratory Exam Respiratory Exam: Decreased Breath Sounds - Cardiovascular Exam Cardiovascular Exam: REGULAR RHYTHM - GI/Abdominal Exam GI & Abdominal Exam: Diminished Bowel Sounds, Distended, Soft, Tenderness. absent: Organomegaly, Rebound, Rigid - Rectal Exam Rectal Exam: Deferred - Exam Exam: NORMAL INSPECTION - Extremities Exam Extremities exam: Positive for: pedal pulses present. Negative for: calf tenderness, pedal edema, tenderness - Back Exam Back exam: absent: CVA tenderness (L), CVA tenderness (R) - Neurological Exam Neurological exam: Alert, CN II-XII Intact, Oriented x3, Reflexes Normal - Psychiatric Exam Psychiatric exam: Normal Mood - Skin Skin Exam: Dry Results - Vital Signs Recent Vital Signs: Last Vital Signs Temp 99.8 F H 10/20/17 16:07 Pulse 62 10/20/17 16:07 Resp 18 10/20/17 16:07 BP 161/91 H 10/20/17 16:07 Pulse Ox 100 10/20/17 16:07 - Labs Result Diagrams: 10/20/17 06:00 10/20/17 06:00 Labs: Laboratory Results - last 24 hr 10/20/17 10/20/17 06:00 06:00 WBC 4.8 RBC 3.41 L Hgb 11.5 L Hct 32.9 L MCV 96.3 H MCH 33.6 H MCHC 35.0 RDW 14.0 Plt Count 136 Sodium 137 Potassium 3.5 L Chloride 105 Carbon Dioxide 23 Anion Gap 13 BUN 16 Creatinine 1.2 Est GFR ( Amer) > 60 Est GFR (Non-Af Amer) > 60 Random Glucose 136 H Calcium 8.0 L Phosphorus 2.5 Magnesium 2.0 Total Bilirubin 0.6 AST 40 ALT 33 Alkaline Phosphatase 87 Total Protein 6.4 Albumin 3.3 L Globulin 3.0 Albumin/Globulin Ratio 1.1 Triglycerides 1004 H Assessment & Plan (1) Diverticulitis Status: Acute (2) Intra-abdominal abscess Status: Acute (3) Urinary tract infection Status: Acute - Assessment and Plan (Free Text) Assessment: for cysto to r/o enterovesicular fistula cont IV antibiotics add Merrem
[2017-10-20] MEDS ORDERED: Meropenem 1 GM in Sodium Chloride 0.9% 100 ML IVPB SCH (18:15)
[2017-10-21] MEDS: metroNIDAZOLE 500mg/100ml NS 100 ML IVPB SCH ×3 (00:34→17:45)
[2017-10-21] MEDS: Potassium Ch 20mEq in D5-1/2NS 1,000 ML IV SCH ×4 (00:36→20:43)
[2017-10-21] MEDS: Meropenem 1 GM in Sodium Chloride 0.9% 100 ML IVPB SCH ×3 (03:32→20:43)
[2017-10-21] MEDS: Levothyroxine 25 MCG TAB PO SCH ×2 (06:09→11:03)
[2017-10-21 06:10] LABS: MEAN CELL VOLUME 96.2 fl (80.0-94.0); MEAN CORPUSCULAR HEMOGLOBIN 32.6 pg (27.0-31.0); MEAN CORPUSCULAR HGB CONC 33.9 g/dL (33.0-37.0); RBC 3.37 Mil/uL (4.40-5.90); RED CELL DISTRIBUTION WIDTH 14.1 % (11.5-14.5); WHITE BLOOD COUNT 5.7 K/uL (4.8-10.8)
[2017-10-21 06:53] LABS: ALBUMIN 3.4 g/dL (3.5-5.0); ALT/SGPT 35 U/L (21-72); AST/SGOT 38 U/L (17-59); BLOOD UREA NITROGEN 11 mg/dl (9-20); CALCIUM 8.2 mg/dL (8.4-10.2); GFR AFRICAN-AMERICAN > 60; GFR NON-AFRICAN AMERICAN > 60
[2017-10-21] MEDS ORDERED: Iohexol 240 200 ML ONE (07:13)
[2017-10-21] MEDS ORDERED: cefTRIAXone (Rocephin) 1 gm Inj ONE (07:13)
[2017-10-21] MEDS ORDERED: Propofol 10 mg/ml Inj (20 ML) ONE ×2 (07:45→08:11)
[2017-10-21] MEDS ORDERED: Midazolam 2 MG/2 ML VIAL ONE (07:45)
[2017-10-21] MEDS ORDERED: Lidocaine 2% Jelly (Uro-Jet) ONE (07:53)
--- NOTE | 2017-10-21 07:56 | CP.PCM.PN ---
<Juan Goddard - Last Filed: 10/21/17 16:06> Subjective - Date & Time of Evaluation Date of Evaluation: 10/21/17 Time of Evaluation: 07:00 - Subjective Subjective: 71 y/o M was evaluated and examined by bedside. Pt reported feeling OK. Pt was afebrile with NO acute events overnight. Pt scheduled for cystoscopy this morning. Objective - Vital Signs/Intake and Output Vital Signs (last 24 hours): Temp Pulse Resp BP Pulse Ox 98.6 F 73 19 143/83 98 10/21/17 07:43 10/21/17 07:43 10/21/17 07:43 10/21/17 07:43 10/21/17 07:43 - Medications Medications: Current Medications Acetaminophen (Tylenol 325mg Tab) 650 mg PO Q4 PRN PRN Reason: Fever >100.4 F Last Admin: 10/20/17 08:33 Dose: 650 mg Atenolol (Tenormin) 50 mg PO DAILY [facility] Last Admin: 10/21/17 07:19 Dose: 50 mg Cyanocobalamin (Vitamin B12 1000 Mcg/Ml Inj) 1,000 mcg IM DAILY [facility] Last Admin: 10/20/17 08:35 Dose: 1,000 mcg Enoxaparin Sodium (Lovenox) 40 mg SC DAILY [facility] PRN Reason: Protocol Last Admin: 10/20/17 08:35 Dose: 40 mg Fenofibrate (Tricor) 145 mg PO DAILY [facility] Last Admin: 10/20/17 08:34 Dose: 145 mg Metronidazole (Flagyl 500mg/100ml Ns) 100 mls @ 100 mls/hr IVPB Q8 [facility] PRN Reason: Protocol Last Admin: 10/21/17 00:34 Dose: 100 mls/hr Potassium Chloride/Dextrose/Sod Cl (Potassium Chl 20 Meq In D5-1/2ns) 1,000 mls @ 125 mls/hr IV .Q8H [facility] Last Admin: 10/21/17 05:06 Dose: 125 mls/hr Meropenem 1 gm/ Sodium (Chloride) 100 mls @ 100 mls/hr IVPB Q8@0430,1230,2030 [facility] PRN Reason: Protocol Last Admin: 10/21/17 03:32 Dose: 100 mls/hr Iohexol (Omnipaque 240 (50 Ml)) 50 ml PO ONCE ONE Stop: 10/21/17 12:24 Levothyroxine Sodium (Synthroid) 25 mcg PO DAILY@0630 [facility] Last Admin: 10/21/17 06:09 Dose: Not Given Morphine Sulfate (Morphine) 2 mg IVP Q4 PRN PRN Reason: Pain, severe (8-10) Ondansetron HCl (Zofran Inj) 4 mg IV Q8 PRN PRN Reason: Nausea/Vomiting - Labs Labs: 10/21/17 05:40 10/21/17 05:40 - Constitutional Appears: Well, No Acute Distress - Head Exam Head Exam: NORMAL INSPECTION - Eye Exam Eye Exam: EOMI - ENT Exam ENT Exam: Mucous Membranes Moist - Neck Exam Neck Exam: Full ROM. absent: Meningismus - Respiratory Exam Respiratory Exam: NORMAL BREATHING PATTERN. absent: Rhonchi, Wheezes - Cardiovascular Exam Cardiovascular Exam: +S1, +S2 - GI/Abdominal Exam GI & Abdominal Exam: Distended, Soft, Tenderness (mild on lower abdomen). absent: Guarding - Extremities Exam Extremities Exam: absent: Calf Tenderness - Neurological Exam Neurological Exam: Alert, Awake, Oriented x3 Assessment and Plan - Assessment and Plan (Free Text) Assessment: 71 y/o M with a PMHx of HTN and acute pancreatitis in 2014, admitted for evaluation of acute sigmoid diverticulitis, ?colovesicular fistula, ?sigmoid/ bladder abscess. >Urinary Tract Infection, Other, possibly due to colovesicular fistula. At ER, U /A concondart with UTI symptomatic. However, Urine Culture shows NO growth of bacteria. Pt w/ possible fistula between colon and bladder; hence causing UTI. Pt is being covered for UTI with Meropenem. 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 --Continue with Levothyroxine, fenofibrate and vitamin B 12 pharmacotherapy --CT abdomen/pelvis with contrast to be performed today. --Cystoscopy today. F/U Urology recommendations. --Blood Cx x2 negative after 48 hours. Urine Cx negative. --Blood work reviewed. Will F/U HbA1c. --On Meropenem and Metronidazole. --ID on board. Dr Flores. --GI on board, Dr Lin --On liquid diet since this morning. --Lovenox for DVT prophylaxis. <Aleksandar Kendall K - Last Filed: 10/22/17 17:59> Objective - Vital Signs/Intake and Output Vital Signs (last 24 hours): Temp Pulse Resp BP Pulse Ox 99 F 60 20 150/80 98 10/22/17 16:25 10/22/17 16:25 10/22/17 16:25 10/22/17 16:25 10/22/17 16:25 Intake and Output: 10/22/17 10/22/17 06:59 18:59 Intake Total 1450 Balance 1450 - Medications Medications: Current Medications Acetaminophen (Tylenol 325mg Tab) 650 mg PO Q4 PRN PRN Reason: Fever >100.4 F Last Admin: 10/20/17 08:33 Dose: 650 mg Atenolol (Tenormin) 50 mg PO DAILY [facility] Last Admin: 10/22/17 08:35 Dose: 50 mg Cyanocobalamin (Vitamin B12 1000 Mcg/Ml Inj) 1,000 mcg IM DAILY [facility] Last Admin: 10/22/17 08:36 Dose: 1,000 mcg Docusate Sodium (Colace) 100 mg PO BID [facility] Last Admin: 10/22/17 16:44 Dose: 100 mg Enoxaparin Sodium (Lovenox) 40 mg SC DAILY [facility] PRN Reason: Protocol Last Admin: 10/22/17 10:18 Dose: 40 mg Fenofibrate (Tricor) 145 mg PO DAILY [facility] Last Admin: 10/22/17 08:35 Dose: 145 mg Metronidazole (Flagyl 500mg/100ml Ns) 100 mls @ 100 mls/hr IVPB Q8 [facility] PRN Reason: Protocol Last Admin: 10/22/17 16:45 Dose: 100 mls/hr Meropenem 1 gm/ Sodium (Chloride) 100 mls @ 100 mls/hr IVPB Q8@0430,1230,2030 [facility] PRN Reason: Protocol Last Admin: 10/22/17 12:56 Dose: 100 mls/hr Levothyroxine Sodium (Synthroid) 25 mcg PO DAILY@0630 [facility] Last Admin: 10/22/17 06:18 Dose: 25 mcg Morphine Sulfate (Morphine) 2 mg IVP Q4 PRN PRN Reason: Pain, severe (8-10) Ondansetron HCl (Zofran Inj) 4 mg IV Q8 PRN PRN Reason: Nausea/Vomiting Psyllium Hydrophilic Mucilloid (Hydrocil Instant) 1 pkt PO DAILY [facility] - Labs Labs: 10/22/17 05:30 10/22/17 05:30 Assessment and Plan - Assessment and Plan (Free Text) Assessment: Patient was personally seen and examined by me in rounds with residents. Available labs and diagnostic data reviewed. Case, Patient's condition and management plan discussed with residents in rounds. Agree with resident's progress note. Plan: As ordered.
[2017-10-21] MEDS ORDERED: Lidocaine 2% Jelly (Uro-Jet) TOP ONE (08:10)
[2017-10-21] MEDS ORDERED: Lactated Ringer's 1,000 ML IV ONE (08:21)
--- NOTE | 2017-10-21 08:23 | CP.PCM.PN ---
Subjective - Date & Time of Evaluation Date of Evaluation: 10/21/17 Time of Evaluation: 06:40 - Subjective Subjective: General Surgery Pt seen and examined. Denies and abdominal pain today. Still reports mild dysuria. Remains NPO. Denies BM/flatus. No other complaints. Afebrile since 0830 yesterday. Objective - Vital Signs/Intake and Output Vital Signs (last 24 hours): Temp Pulse Resp BP Pulse Ox 97.9 F 88 20 110/71 95 10/21/17 08:11 10/21/17 08:11 10/21/17 08:11 10/21/17 08:11 10/21/17 08:11 - Medications Medications: Current Medications Acetaminophen (Tylenol 325mg Tab) 650 mg PO Q4 PRN PRN Reason: Fever >100.4 F Last Admin: 10/20/17 08:33 Dose: 650 mg Atenolol (Tenormin) 50 mg PO DAILY [facility] Last Admin: 10/21/17 07:19 Dose: 50 mg Cyanocobalamin (Vitamin B12 1000 Mcg/Ml Inj) 1,000 mcg IM DAILY [facility] Last Admin: 10/20/17 08:35 Dose: 1,000 mcg Enoxaparin Sodium (Lovenox) 40 mg SC DAILY [facility] PRN Reason: Protocol Last Admin: 10/20/17 08:35 Dose: 40 mg Fenofibrate (Tricor) 145 mg PO DAILY [facility] Last Admin: 10/20/17 08:34 Dose: 145 mg Metronidazole (Flagyl 500mg/100ml Ns) 100 mls @ 100 mls/hr IVPB Q8 [facility] PRN Reason: Protocol Last Admin: 10/21/17 00:34 Dose: 100 mls/hr Potassium Chloride/Dextrose/Sod Cl (Potassium Chl 20 Meq In D5-1/2ns) 1,000 mls @ 125 mls/hr IV .Q8H [facility] Last Admin: 10/21/17 05:06 Dose: 125 mls/hr Meropenem 1 gm/ Sodium (Chloride) 100 mls @ 100 mls/hr IVPB Q8@0430,1230,2030 [facility] PRN Reason: Protocol Last Admin: 10/21/17 03:32 Dose: 100 mls/hr Iohexol (Omnipaque 240 (50 Ml)) 50 ml PO ONCE ONE Stop: 10/21/17 12:24 Levothyroxine Sodium (Synthroid) 25 mcg PO DAILY@0630 [facility] Last Admin: 10/21/17 06:09 Dose: Not Given Morphine Sulfate (Morphine) 2 mg IVP Q4 PRN PRN Reason: Pain, severe (8-10) Ondansetron HCl (Zofran Inj) 4 mg IV Q8 PRN PRN Reason: Nausea/Vomiting - Labs Labs: 10/21/17 05:40 10/21/17 05:40 - Constitutional Appears: Non-toxic, No Acute Distress - Head Exam Head Exam: ATRAUMATIC, NORMOCEPHALIC - Eye Exam Eye Exam: EOMI. absent: Scleral icterus - Respiratory Exam Respiratory Exam: NORMAL BREATHING PATTERN. absent: Respiratory Distress - Cardiovascular Exam Cardiovascular Exam: RRR, +S1, +S2 - GI/Abdominal Exam GI & Abdominal Exam: Soft. absent: Distended, Firm, Guarding, Rigid, Tenderness , Rebound - Extremities Exam Extremities Exam: absent: Calf Tenderness, Pedal Edema - Neurological Exam Neurological Exam: Alert, Awake, Oriented x3 - Skin Skin Exam: Dry, Warm Assessment and Plan - Assessment and Plan (Free Text) Assessment: 71M with recurrent, complicated sigmoid diverticulitis and possible colovesicular fistula Plan: -Continue strict NPO - Cont Zosyn/Flagyl - Replete electrolytes PRN - Urine Cx with no growth - F/U stool, blood Cx - F/U Urology recs after cysto today - GI recs; will need colonoscopy in 6-8wks D/W Dr. Tal Mortensen PGY4
[2017-10-21] MEDS ORDERED: HYDROmorphone 1 mg/ml ISec IVP PRN (08:36)
[2017-10-21] MEDS: Enoxaparin 40 mg Syringe SC SCH (11:02)
--- NOTE | 2017-10-21 11:08 | RAD ---
Date of service: 10/21/2017 PROCEDURE: Intraoperative Fluoroscopy. HISTORY: CYSTOGRAM (FISTULA) FINDINGS: Fluoroscopic assistance was provided for cystography. Please refer to the operative report from MARIEL Robbins. Total fluoroscopic time (continuous mode) utilized during the procedure twenty-seven (seconds).
[2017-10-21] MEDS ORDERED: Iohexol 240 (50 ml) PO ONE (12:23)
--- NOTE | 2017-10-21 13:17 | OP ---
Copied To: Rita Franco MD Attending MD: Aleksandar Kendall MD PROCEDURE DATE: 10/21/2017 PREOPERATIVE DIAGNOSES: Urinary tract infection, rule out vesicoenteric fistula. POSTOPERATIVE DIAGNOSES: Urinary tract infection, rule out vesicoenteric fistula. PROCEDURES PERFORMED: Cystoscopy and a cystogram. DESCRIPTION OF PROCEDURE: The patient was placed on the operating room table in a dorsal lithotomy position, given IV sedation. At this time, a #22 cystoscope was inserted into the bladder atraumatically. The findings in the bladder there appears to the left side of the dome of the bladder there is a significantly edematous area with a small looks like either necrotic piece of tissue or some oozing in this area, which could be fecal material. Tried to dislodge it and it did not want to dislodge, so at this point I took some documenting photos and then emptied the bladder and then refilled it again with Cystografin material to the point of a pressure cystogram and in the pressure cystogram you could see the bladder was well outlined. I then immediately voided the Cystografin material, took another delayed film and did not see any clear evidence of extravasation of contrast beyond the confines of the bladder wall. Once this information was documented, then the patient was taken from the operating room in good condition. Rita Franco MD
[2017-10-21] MEDS ORDERED: Iohexol 300 100 ML IJ ONE (14:17)
[2017-10-21] MEDS ORDERED: Sodium Chloride 0.9% 50 ML IV ONE (14:17)
--- NOTE | 2017-10-21 15:08 | CT ---
Date of service: 10/21/2017 PROCEDURE: CT Abdomen and Pelvis with contrast HISTORY: f/u acute diverticulitis w/ poss peribladder fistu COMPARISON: CT abdomen/pelvis 10/18/2017 TECHNIQUE: Contrast dose: 95 cc Omnipaque 300 Radiation dose: Total exam DLP = 727.00 mGy-cm. This CT exam was performed using one or more of the following dose reduction techniques: Automated exposure control, adjustment of the mA and/or kV according to patient size, and/or use of iterative reconstruction technique. FINDINGS: LOWER THORAX: Unremarkable. LIVER: Normal size and contour. Diffusely diminished attenuation consistent with fatty infiltration. No mass. No biliary ductal dilatation. GALLBLADDER AND BILE DUCTS: Unremarkable. PANCREAS: Unremarkable. No gross lesion or ductal dilatation. SPLEEN: Unremarkable. ADRENALS: Unremarkable. No mass. KIDNEYS AND URETERS: Unremarkable. No hydronephrosis. No solid mass. VASCULATURE: Unremarkable. No aortic aneurysm. BOWEL: Persistent extensive mural thickening of the sigmoid colon associated with extensive sigmoid diverticulosis, consistent with acute diverticulitis. There is persistent dwight-sigmoid inflammatory change. There is diverticulosis of the descending colon. There is no bowel obstruction. APPENDIX: Normal appendix. PERITONEUM: Unremarkable. No free fluid. No free air. LYMPH NODES: Unremarkable. No enlarged lymph nodes. BLADDER: There is asymmetric thickening of the bladder wall left antral lateral towards the dome. Inflammatory change is seen adjacent to both this thickened bladder wall and adjacent sigmoid colon. There is gas that is extrinsic to the colon, extending to or within the bladder wall suggestive of fistula/abscess. There is a small amount of gas seen within the bladder lumen. This may be due to instrumentation or fistula. There is punctate calcification within the affected portion of the bladder wall, nonspecific. REPRODUCTIVE: Normal prostate BONES: No acute fracture. OTHER FINDINGS: None. IMPRESSION: Sigmoid diverticulitis. Possible abscess adjacent to sigmoid and bladder with question of fistula formation between the sigmoid and the bladder. . This cannot be determined with certainty on the basis of this examination. Small amount of gas within the urinary bladder lumen, nonspecific.
--- NOTE | 2017-10-21 17:50 | CP.PCM.PN ---
Subjective - Date & Time of Evaluation Date of Evaluation: 10/21/17 Time of Evaluation: 07:00 - Subjective Subjective: Denies and abdominal pain today. Still reports mild dysuria. Remains NPO. Denies BM/flatus. No other complaints. Afebrile since 0830 yesterday. Objective - Vital Signs/Intake and Output Vital Signs (last 24 hours): Temp Pulse Resp BP Pulse Ox 98.8 F 70 20 152/79 H 98 10/21/17 16:22 10/21/17 16:22 10/21/17 16:22 10/21/17 16:22 10/21/17 16:22 Intake and Output: 10/21/17 10/21/17 06:59 18:59 Intake Total 375 Balance 375 - Medications Medications: Current Medications Acetaminophen (Tylenol 325mg Tab) 650 mg PO Q4 PRN PRN Reason: Fever >100.4 F Last Admin: 10/20/17 08:33 Dose: 650 mg Atenolol (Tenormin) 50 mg PO DAILY [facility] Last Admin: 10/21/17 09:23 Dose: Not Given Cyanocobalamin (Vitamin B12 1000 Mcg/Ml Inj) 1,000 mcg IM DAILY [facility] Last Admin: 10/21/17 11:02 Dose: 1,000 mcg Enoxaparin Sodium (Lovenox) 40 mg SC DAILY [facility] PRN Reason: Protocol Last Admin: 10/21/17 11:02 Dose: Not Given Fenofibrate (Tricor) 145 mg PO DAILY [facility] Last Admin: 10/21/17 11:03 Dose: 145 mg Metronidazole (Flagyl 500mg/100ml Ns) 100 mls @ 100 mls/hr IVPB Q8 [facility] PRN Reason: Protocol Last Admin: 10/21/17 17:45 Dose: 100 mls/hr Potassium Chloride/Dextrose/Sod Cl (Potassium Chl 20 Meq In D5-1/2ns) 1,000 mls @ 125 mls/hr IV .Q8H [facility] Last Admin: 10/21/17 15:04 Dose: Not Given Meropenem 1 gm/ Sodium (Chloride) 100 mls @ 100 mls/hr IVPB Q8@0430,1230,2030 [facility] PRN Reason: Protocol Last Admin: 10/21/17 11:35 Dose: 100 mls/hr Levothyroxine Sodium (Synthroid) 25 mcg PO DAILY@0630 [facility] Last Admin: 10/21/17 11:03 Dose: 25 mcg Morphine Sulfate (Morphine) 2 mg IVP Q4 PRN PRN Reason: Pain, severe (8-10) Ondansetron HCl (Zofran Inj) 4 mg IV Q8 PRN PRN Reason: Nausea/Vomiting - Labs Labs: 10/21/17 05:40 10/21/17 05:40 - Constitutional Appears: Non-toxic, Chronically Ill - Head Exam Head Exam: NORMOCEPHALIC - Eye Exam Eye Exam: PERRL - ENT Exam ENT Exam: Mucous Membranes Dry - Neck Exam Neck Exam: absent: Lymphadenopathy - Respiratory Exam Respiratory Exam: Decreased Breath Sounds - Cardiovascular Exam Cardiovascular Exam: REGULAR RHYTHM - GI/Abdominal Exam GI & Abdominal Exam: Distended, Soft, Tenderness Assessment and Plan (1) Diverticulitis Status: Acute (2) Intra-abdominal abscess Status: Acute (3) Urinary tract infection Status: Acute - Assessment and Plan (Free Text) Assessment: cont iv rx gi and surgical follow up
[2017-10-22] MEDS: metroNIDAZOLE 500mg/100ml NS 100 ML IVPB SCH ×3 (00:29→16:45)
[2017-10-22] MEDS: Meropenem 1 GM in Sodium Chloride 0.9% 100 ML IVPB SCH ×3 (04:13→20:40)
[2017-10-22] MEDS: Potassium Ch 20mEq in D5-1/2NS 1,000 ML IV SCH ×3 (06:10→16:43)
[2017-10-22] MEDS: Levothyroxine 25 MCG TAB PO SCH (06:18)
[2017-10-22 07:24] LABS: HEMOGLOBIN 11.3 g/dL (12.0-18.0); MEAN CELL VOLUME 95.6 fl (80.0-94.0); MEAN CORPUSCULAR HEMOGLOBIN 33.5 pg (27.0-31.0); MEAN CORPUSCULAR HGB CONC 35.1 g/dL (33.0-37.0); RBC 3.38 Mil/uL (4.40-5.90); RED CELL DISTRIBUTION WIDTH 14.1 % (11.5-14.5); WHITE BLOOD COUNT 5.6 K/uL (4.8-10.8)
[2017-10-22 07:34] LABS: BLOOD UREA NITROGEN 13 mg/dl (9-20); CALCIUM 8.5 mg/dL (8.4-10.2); GFR AFRICAN-AMERICAN > 60; GFR NON-AFRICAN AMERICAN > 60
--- NOTE | 2017-10-22 07:41 | PQF ---
PROVIDER RESPONSE TEXT: UTI present REVIEWER QUERY TEXT: Conflicting Documentation Clarification A single mention of UTI by the ER is documented for the same clinical presentation in the record. Please clarify the diagnosis/diagnoses: UTI ruled in or ruled out after workup Please also document if the condition is: -- Confirmed and current -- Confirmed, treated and resolved -- Ruled out -- Other, please specify The patient's Clinical Indicators include: 71 y/o male presents for evaluation of dysuria x 2 days. Associated tactile fevers, vomiting, increas ed urine frequency/urgency and suprapubic pain. URINE CS : No growth <1,000 CFU/ML RX: IVAB Query created by: Adrianne Leslie on 10/21/2017 9:26 AM Electronically signed by: Aleksandar Kendall 10/22/2017 7:38 AM
--- NOTE | 2017-10-22 09:08 | CP.PCM.PN ---
Subjective - Date & Time of Evaluation Date of Evaluation: 10/22/17 Time of Evaluation: 07:20 - Subjective Subjective: General Surgery Pt seen and examined. Afebrile. Denies abdominal pain. Denies dysuria. Remains NPO. Denies BM. +flatus. No other complaints. Says he has some appetite today. Objective - Vital Signs/Intake and Output Vital Signs (last 24 hours): Temp Pulse Resp BP Pulse Ox 98.3 F 74 19 171/91 H 98 10/22/17 07:31 10/22/17 08:35 10/22/17 07:31 10/22/17 08:35 10/22/17 07:31 Intake and Output: 10/22/17 10/22/17 06:59 18:59 Intake Total 1450 Balance 1450 - Medications Medications: Current Medications Acetaminophen (Tylenol 325mg Tab) 650 mg PO Q4 PRN PRN Reason: Fever >100.4 F Last Admin: 10/20/17 08:33 Dose: 650 mg Atenolol (Tenormin) 50 mg PO DAILY [facility] Last Admin: 10/22/17 08:35 Dose: 50 mg Cyanocobalamin (Vitamin B12 1000 Mcg/Ml Inj) 1,000 mcg IM DAILY [facility] Last Admin: 10/22/17 08:36 Dose: 1,000 mcg Enoxaparin Sodium (Lovenox) 40 mg SC DAILY [facility] PRN Reason: Protocol Last Admin: 10/21/17 11:02 Dose: Not Given Fenofibrate (Tricor) 145 mg PO DAILY [facility] Last Admin: 10/22/17 08:35 Dose: 145 mg Metronidazole (Flagyl 500mg/100ml Ns) 100 mls @ 100 mls/hr IVPB Q8 [facility] PRN Reason: Protocol Last Admin: 10/22/17 08:36 Dose: 100 mls/hr Potassium Chloride/Dextrose/Sod Cl (Potassium Chl 20 Meq In D5-1/2ns) 1,000 mls @ 125 mls/hr IV .Q8H [facility] Last Admin: 10/22/17 06:10 Dose: Not Given Meropenem 1 gm/ Sodium (Chloride) 100 mls @ 100 mls/hr IVPB Q8@0430,1230,2030 [facility] PRN Reason: Protocol Last Admin: 10/22/17 04:13 Dose: 100 mls/hr Levothyroxine Sodium (Synthroid) 25 mcg PO DAILY@0630 [facility] Last Admin: 10/22/17 06:18 Dose: 25 mcg Morphine Sulfate (Morphine) 2 mg IVP Q4 PRN PRN Reason: Pain, severe (8-10) Ondansetron HCl (Zofran Inj) 4 mg IV Q8 PRN PRN Reason: Nausea/Vomiting - Labs Labs: 10/22/17 05:30 10/22/17 05:30 - Constitutional Appears: Non-toxic, No Acute Distress - Head Exam Head Exam: ATRAUMATIC, NORMOCEPHALIC - Eye Exam Eye Exam: EOMI. absent: Scleral icterus - Respiratory Exam Respiratory Exam: NORMAL BREATHING PATTERN. absent: Respiratory Distress - Cardiovascular Exam Cardiovascular Exam: RRR, +S1, +S2 - GI/Abdominal Exam GI & Abdominal Exam: Soft. absent: Distended, Firm, Guarding, Rigid, Tenderness , Rebound - Back Exam Back Exam: absent: CVA tenderness (L), CVA tenderness (R) - Neurological Exam Neurological Exam: Alert, Awake, Oriented x3 - Skin Skin Exam: Dry, Warm Assessment and Plan - Assessment and Plan (Free Text) Assessment: 71M with recurrent, complicated sigmoid diverticulitis and possible colovesicular fistula/perivesicular abscess Plan: -Advance diet as tolerated to high fiber, low carb diet, hold diet if pain returns. - Cont Zosyn/Flagyl - Replete electrolytes PRN - Stool softeners and High Fiber diet on DC - Needs to implement plan for weight loss with new diet, Recommend Nutrition consult for recommendations. - GI recs; will need colonoscopy in 6-8wks - F/U with Surgery in clinic 2 weeks after colonoscopy D/W Dr. Tal Mortensen PGY4
[2017-10-22] MEDS: Enoxaparin 40 mg Syringe SC SCH (10:18)
--- NOTE | 2017-10-22 13:47 | PN ---
Copied To: Aleksandar Kendall MD Attending MD: Aleksandar Kendall MD DATE: 10/22/2017 SUBJECTIVE: The patient is seen and examined. Interim events noted. Consults noted and appreciated. Infectious Disease, Urology, and Surgery followup and intervention noted and appreciated. The patient is status post hysteroscopy. The patient feels okay. Denies any specific complaints of chest pain. No shortness of breath. PHYSICAL EXAMINATION: GENERAL: The patient is in no acute distress. VITAL SIGNS: Stable. HEART: S1 and S2, normal and regular. LUNGS: Good bilateral air exchange. ABDOMEN: Soft and nontender. EXTREMITIES: No edema. No calf swelling. No tenderness. No acute ischemia. 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 DIAGNOSTIC DATA: Available diagnostic data reviewed. for it. ASSESSMENT AND PLAN: Overall, the patient is medically stable. today. Plan as ordered. Case and plan discussed with the patient. Aleksandar Kendall MD
--- NOTE | 2017-10-22 14:05 | CP.PCM.PN ---
<Yaritza Phillips - Last Filed: 10/22/17 16:53> Subjective - Date & Time of Evaluation Date of Evaluation: 10/22/17 Time of Evaluation: 09:00 - Subjective Subjective: GI Fellow PGY5 Consult Note Pt seen and evaluated at bedside, pt doing well with no abdominal pain this am. Pt reports feeling hungry and would like to eat food. Denies any fevers or chills. +BM. ROS: A 12pt ROS was negative except as above. Objective - Vital Signs/Intake and Output Vital Signs (last 24 hours): Temp Pulse Resp BP Pulse Ox 98.3 F 74 19 171/91 H 98 10/22/17 07:31 10/22/17 08:35 10/22/17 07:31 10/22/17 08:35 10/22/17 07:31 Intake and Output: 10/22/17 10/22/17 06:59 18:59 Intake Total 1450 Balance 1450 - Medications Medications: Current Medications Acetaminophen (Tylenol 325mg Tab) 650 mg PO Q4 PRN PRN Reason: Fever >100.4 F Last Admin: 10/20/17 08:33 Dose: 650 mg Atenolol (Tenormin) 50 mg PO DAILY [facility] Last Admin: 10/22/17 08:35 Dose: 50 mg Cyanocobalamin (Vitamin B12 1000 Mcg/Ml Inj) 1,000 mcg IM DAILY [facility] Last Admin: 10/22/17 08:36 Dose: 1,000 mcg Docusate Sodium (Colace) 100 mg PO BID [facility] Last Admin: 10/22/17 10:18 Dose: 100 mg Enoxaparin Sodium (Lovenox) 40 mg SC DAILY [facility] PRN Reason: Protocol Last Admin: 10/22/17 10:18 Dose: 40 mg Fenofibrate (Tricor) 145 mg PO DAILY [facility] Last Admin: 10/22/17 08:35 Dose: 145 mg Metronidazole (Flagyl 500mg/100ml Ns) 100 mls @ 100 mls/hr IVPB Q8 [facility] PRN Reason: Protocol Last Admin: 10/22/17 08:36 Dose: 100 mls/hr Potassium Chloride/Dextrose/Sod Cl (Potassium Chl 20 Meq In D5-1/2ns) 1,000 mls @ 125 mls/hr IV .Q8H [facility] Last Admin: 10/22/17 10:42 Dose: 125 mls/hr Meropenem 1 gm/ Sodium (Chloride) 100 mls @ 100 mls/hr IVPB Q8@0430,1230,2030 [facility] PRN Reason: Protocol Last Admin: 10/22/17 12:56 Dose: 100 mls/hr Levothyroxine Sodium (Synthroid) 25 mcg PO DAILY@0630 [facility] Last Admin: 10/22/17 06:18 Dose: 25 mcg Morphine Sulfate (Morphine) 2 mg IVP Q4 PRN PRN Reason: Pain, severe (8-10) Ondansetron HCl (Zofran Inj) 4 mg IV Q8 PRN PRN Reason: Nausea/Vomiting Psyllium Hydrophilic Mucilloid (Hydrocil Instant) 1 pkt PO DAILY [facility] - Labs Labs: 10/22/17 05:30 10/22/17 05:30 - Constitutional Appears: Non-toxic, No Acute Distress - Head Exam Head Exam: ATRAUMATIC, NORMAL INSPECTION, NORMOCEPHALIC - Eye Exam Eye Exam: EOMI, Normal appearance, PERRL Pupil Exam: PERRL - ENT Exam ENT Exam: Mucous Membranes Moist - Neck Exam Neck Exam: Full ROM, Normal Inspection - Respiratory Exam Respiratory Exam: Clear to Ausculation Bilateral, NORMAL BREATHING PATTERN - Cardiovascular Exam Cardiovascular Exam: REGULAR RHYTHM, RRR, +S1, +S2 - GI/Abdominal Exam GI & Abdominal Exam: Soft, Normal Bowel Sounds. absent: Distended, Firm, Guarding, Rigid, Tenderness - Rectal Exam Rectal Exam: Deferred - Extremities Exam Extremities Exam: Full ROM, Pedal Edema - Neurological Exam Neurological Exam: Alert, Awake, Oriented x3 - Psychiatric Exam Psychiatric exam: Normal Affect, Normal Mood - Skin Skin Exam: Dry, Intact, Normal Color, Warm Assessment and Plan - Assessment and Plan (Free Text) Assessment: This is a 71M w/ hx of diverticulitis, htn, HL who presents to the ER with suprapubic pain. 1) Complicated Acute Sigmoid diverticulitis with possible abscess and possible colovesicular fistula 2) Perivesicular abscess 3) Possible colovesicular fistula 4) Hx of diverticulitis Plan: -Continue supportive care -Continue abx as per primary team -Continue IV fluids -s/p Cystoscopy and per op report no clear extravasation of contrast beyond bladder wall but possible fecal material in bladder? -Await further surgery and urology recommendations -Diet as per urology and surgery pending any procedure -IR consult placed by surgery for abscess drainage -Will need an outpt colonoscopy for screening and evaluation post diverticulitis after 8 weeks <Kane Unger - Last Filed: 10/22/17 19:09> Objective - Vital Signs/Intake and Output Vital Signs (last 24 hours): Temp Pulse Resp BP Pulse Ox 99 F 60 20 150/80 98 10/22/17 16:25 10/22/17 16:25 10/22/17 16:25 10/22/17 16:25 10/22/17 16:25 - Medications Medications: Current Medications Acetaminophen (Tylenol 325mg Tab) 650 mg PO Q4 PRN PRN Reason: Fever >100.4 F Last Admin: 10/20/17 08:33 Dose: 650 mg Atenolol (Tenormin) 50 mg PO DAILY [facility] Last Admin: 10/22/17 08:35 Dose: 50 mg Cyanocobalamin (Vitamin B12 1000 Mcg/Ml Inj) 1,000 mcg IM DAILY [facility] Last Admin: 10/22/17 08:36 Dose: 1,000 mcg Docusate Sodium (Colace) 100 mg PO BID [facility] Last Admin: 10/22/17 16:44 Dose: 100 mg Enoxaparin Sodium (Lovenox) 40 mg SC DAILY [facility] PRN Reason: Protocol Last Admin: 10/22/17 10:18 Dose: 40 mg Fenofibrate (Tricor) 145 mg PO DAILY [facility] Last Admin: 10/22/17 08:35 Dose: 145 mg Metronidazole (Flagyl 500mg/100ml Ns) 100 mls @ 100 mls/hr IVPB Q8 [facility] PRN Reason: Protocol Last Admin: 10/22/17 16:45 Dose: 100 mls/hr Meropenem 1 gm/ Sodium (Chloride) 100 mls @ 100 mls/hr IVPB Q8@0430,1230,2030 [facility] PRN Reason: Protocol Last Admin: 10/22/17 12:56 Dose: 100 mls/hr Levothyroxine Sodium (Synthroid) 25 mcg PO DAILY@0630 [facility] Last Admin: 10/22/17 06:18 Dose: 25 mcg Morphine Sulfate (Morphine) 2 mg IVP Q4 PRN PRN Reason: Pain, severe (8-10) Ondansetron HCl (Zofran Inj) 4 mg IV Q8 PRN PRN Reason: Nausea/Vomiting Psyllium Hydrophilic Mucilloid (Hydrocil Instant) 1 pkt PO DAILY [facility] - Labs Labs: 10/22/17 05:30 10/22/17 05:30 Attending/Attestation - Attestation I have personally seen and examined this patient.: Yes I have fully participated in the care of the patient.: Yes I have reviewed all pertinent clinical information, including history, physical exam and plan: Yes Notes (Text): 10/22/17 19:[address] Blank. No complaints. pain-free. Non-tender abdomen on exam. OK to advance diet from GI perspective. Maintian reg. bms. Agree with the above assessment and plan.
[2017-10-23 01:19] VITALS: RESP 19
[2017-10-23] MEDS: metroNIDAZOLE 500mg/100ml NS 100 ML IVPB SCH ×3 (01:24→16:32)
[2017-10-23] MEDS: Meropenem 1 GM in Sodium Chloride 0.9% 100 ML IVPB SCH ×3 (04:33→21:13)
[2017-10-23] MEDS: Levothyroxine 25 MCG TAB PO SCH (06:27)
[2017-10-23 07:07] LABS: HEMOGLOBIN 12.1 g/dL (12.0-18.0); MEAN CELL VOLUME 96.2 fl (80.0-94.0); MEAN CORPUSCULAR HEMOGLOBIN 33.2 pg (27.0-31.0); MEAN CORPUSCULAR HGB CONC 34.5 g/dL (33.0-37.0); RBC 3.66 Mil/uL (4.40-5.90); RED CELL DISTRIBUTION WIDTH 13.8 % (11.5-14.5); WHITE BLOOD COUNT 4.9 K/uL (4.8-10.8)
[2017-10-23 07:24] LABS: ALBUMIN 3.3 g/dL (3.5-5.0); ALT/SGPT 45 U/L (21-72); AST/SGOT 67 U/L (17-59); BLOOD UREA NITROGEN 10 mg/dl (9-20); CALCIUM 8.7 mg/dL (8.4-10.2); GFR AFRICAN-AMERICAN > 60; GFR NON-AFRICAN AMERICAN > 60
--- NOTE | 2017-10-23 08:21 | CP.PCM.PN ---
Subjective - Date & Time of Evaluation Date of Evaluation: 10/23/17 Time of Evaluation: 08:19 - Subjective Subjective: General Surgery - Dr. Parada Pt S&E. HUGO. Pt denies any abdominal pain. He tolerated clear liquids yesterday and would like to eat more. He still has not had a bowel movement but is passing flatus. Pt denies any Fevers/Chills, Nausea/Vomiting, SOB/Chest pain. He has been OOB ambulating. Objective - Vital Signs/Intake and Output Vital Signs (last 24 hours): Temp Pulse Resp BP Pulse Ox 98.2 F 55 L 19 155/77 H 97 10/23/17 07:49 10/23/17 07:49 10/23/17 07:49 10/23/17 07:49 10/23/17 07:49 - Medications Medications: Current Medications Acetaminophen (Tylenol 325mg Tab) 650 mg PO Q4 PRN PRN Reason: Fever >100.4 F Last Admin: 10/20/17 08:33 Dose: 650 mg Atenolol (Tenormin) 50 mg PO DAILY [facility] Last Admin: 10/22/17 08:35 Dose: 50 mg Cyanocobalamin (Vitamin B12 1000 Mcg/Ml Inj) 1,000 mcg IM DAILY [facility] Last Admin: 10/22/17 08:36 Dose: 1,000 mcg Docusate Sodium (Colace) 100 mg PO BID [facility] Last Admin: 10/22/17 16:44 Dose: 100 mg Enoxaparin Sodium (Lovenox) 40 mg SC DAILY [facility] PRN Reason: Protocol Last Admin: 10/22/17 10:18 Dose: 40 mg Fenofibrate (Tricor) 145 mg PO DAILY [facility] Last Admin: 10/22/17 08:35 Dose: 145 mg Metronidazole (Flagyl 500mg/100ml Ns) 100 mls @ 100 mls/hr IVPB Q8 [facility] PRN Reason: Protocol Last Admin: 10/23/17 01:24 Dose: 100 mls/hr Meropenem 1 gm/ Sodium (Chloride) 100 mls @ 100 mls/hr IVPB Q8@0430,1230,2030 [facility] PRN Reason: Protocol Last Admin: 10/23/17 04:33 Dose: 100 mls/hr Levothyroxine Sodium (Synthroid) 25 mcg PO DAILY@0630 [facility] Last Admin: 10/23/17 06:27 Dose: 25 mcg Morphine Sulfate (Morphine) 2 mg IVP Q4 PRN PRN Reason: Pain, severe (8-10) Ondansetron HCl (Zofran Inj) 4 mg IV Q8 PRN PRN Reason: Nausea/Vomiting Psyllium Hydrophilic Mucilloid (Hydrocil Instant) 1 pkt PO DAILY [facility] - Labs Labs: 10/23/17 05:30 10/23/17 05:30 - Constitutional Appears: No Acute Distress - Head Exam Head Exam: ATRAUMATIC, NORMAL INSPECTION, NORMOCEPHALIC - Respiratory Exam Respiratory Exam: NORMAL BREATHING PATTERN. absent: Respiratory Distress - Cardiovascular Exam Cardiovascular Exam: REGULAR RHYTHM - GI/Abdominal Exam GI & Abdominal Exam: Firm (llq), Soft. absent: Distended, Guarding, Rigid, Tenderness, Rebound - Neurological Exam Neurological Exam: Alert, Oriented x3 - Psychiatric Exam Psychiatric exam: Normal Affect, Normal Mood - Skin Skin Exam: Dry, Intact Assessment and Plan - Assessment and Plan (Free Text) Assessment: 71M with recurrent, complicated sigmoid diverticulitis and possible colovesicular fistula/perivesicular abscess Plan: - Full liquid diet, will advance as tolerated - Cont. Zosyn/Flagyl - Cont. Stool softeners - Recommend Nutrition consult to assist pt in planning low carb/low fat/high fiber diet - Colonoscopy in 6-8 weeks with GI - F/U in Surgery clinic 2 weeks after colonoscopy D/W Dr. Tal Hamilton PGY4
[2017-10-23] MEDS: Enoxaparin 40 mg Syringe SC SCH (08:54)
[2017-10-23] MEDS: Psyllium Packet PO SCH (08:55)
--- NOTE | 2017-10-23 10:18 | PN ---
Copied To: Aleksandar Kendall MD Attending MD: Aleksandar Kendall MD DATE: 10/23/2017 SUBJECTIVE: The patient seen and examined. Interim events noted. Consults noted and appreciated. Surgery and Gastroenterology followup and interventions noted and appreciated. The patient remains in regular medical floor, tolerating diet. Denies any specific complaint. No abdominal pain. No chest pain or shortness of breath. OBJECTIVE: GENERAL: The patient is in no acute distress. VITAL SIGNS: Stable. HEART: S1, S2. Normal and regular. LUNGS: Good bilateral air exchange. ABDOMEN: Bowel sounds are plus and normal. No sign of acute abdomen. No guarding or rigidity or rebound. EXTREMITIES: No edema. No calf swelling. No tenderness. No acute ischemia. 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 DIAGNOSTIC DATA: Available diagnostic data reviewed. Overall, the patient is slowly improving, tolerating diet. Plan as ordered. Aleksandar Kendall MD
--- NOTE | 2017-10-23 12:10 | CP.PCM.PN ---
<Yaritza Phillips - Last Filed: 10/23/17 12:10> Subjective - Date & Time of Evaluation Date of Evaluation: 10/23/17 Time of Evaluation: 11:00 - Subjective Subjective: GI Fellow PGY5 Consult Note Pt seen and evaluated at bedside, pt doing well with no abdominal pain this am. Pt reports feeling hungry and would like to eat food. Denies any fevers or chills. Denies any BM. ROS: A 12pt ROS was negative except as above. Objective - Vital Signs/Intake and Output Vital Signs (last 24 hours): Temp Pulse Resp BP Pulse Ox 98.2 F 69 19 154/82 H 97 10/23/17 07:49 10/23/17 08:59 10/23/17 07:49 10/23/17 08:59 10/23/17 07:49 - Medications Medications: Current Medications Acetaminophen (Tylenol 325mg Tab) 650 mg PO Q4 PRN PRN Reason: Fever >100.4 F Last Admin: 10/20/17 08:33 Dose: 650 mg Atenolol (Tenormin) 50 mg PO DAILY [facility] Last Admin: 10/23/17 08:59 Dose: 50 mg Cyanocobalamin (Vitamin B12 1000 Mcg/Ml Inj) 1,000 mcg IM DAILY [facility] Last Admin: 10/22/17 08:36 Dose: 1,000 mcg Docusate Sodium (Colace) 100 mg PO BID [facility] Last Admin: 10/23/17 08:55 Dose: 100 mg Enoxaparin Sodium (Lovenox) 40 mg SC DAILY [facility] PRN Reason: Protocol Last Admin: 10/23/17 08:54 Dose: 40 mg Fenofibrate (Tricor) 145 mg PO DAILY [facility] Last Admin: 10/23/17 08:55 Dose: 145 mg Metronidazole (Flagyl 500mg/100ml Ns) 100 mls @ 100 mls/hr IVPB Q8 [facility] PRN Reason: Protocol Last Admin: 10/23/17 08:53 Dose: 100 mls/hr Meropenem 1 gm/ Sodium (Chloride) 100 mls @ 100 mls/hr IVPB Q8@0430,1230,2030 [facility] PRN Reason: Protocol Last Admin: 10/23/17 04:33 Dose: 100 mls/hr Levothyroxine Sodium (Synthroid) 25 mcg PO DAILY@0630 [facility] Last Admin: 10/23/17 06:27 Dose: 25 mcg Morphine Sulfate (Morphine) 2 mg IVP Q4 PRN PRN Reason: Pain, severe (8-10) Ondansetron HCl (Zofran Inj) 4 mg IV Q8 PRN PRN Reason: Nausea/Vomiting Psyllium Hydrophilic Mucilloid (Hydrocil Instant) 1 pkt PO DAILY [facility] Last Admin: 10/23/17 08:55 Dose: 1 pkt - Labs Labs: 10/23/17 05:30 10/23/17 05:30 - Constitutional Appears: Non-toxic, No Acute Distress - Head Exam Head Exam: ATRAUMATIC, NORMAL INSPECTION, NORMOCEPHALIC - Eye Exam Eye Exam: EOMI, Normal appearance, PERRL - ENT Exam ENT Exam: Mucous Membranes Moist - Neck Exam Neck Exam: Full ROM, Normal Inspection - Respiratory Exam Respiratory Exam: Clear to Ausculation Bilateral, NORMAL BREATHING PATTERN - Cardiovascular Exam Cardiovascular Exam: RRR, +S1, +S2 - GI/Abdominal Exam GI & Abdominal Exam: Soft, Normal Bowel Sounds. absent: Distended, Firm, Guarding, Tenderness - Rectal Exam Rectal Exam: Deferred - Extremities Exam Extremities Exam: Full ROM, Normal Inspection - Neurological Exam Neurological Exam: Alert, Awake, Oriented x3 - Psychiatric Exam Psychiatric exam: Normal Affect, Normal Mood - Skin Skin Exam: Dry, Intact, Normal Color, Warm Assessment and Plan - Assessment and Plan (Free Text) Assessment: This is a 71M w/ hx of diverticulitis, htn, HL who presents to the ER with suprapubic pain. 1) Complicated Acute Sigmoid diverticulitis with possible abscess and possible colovesicular fistula 2) Perivesicular abscess 3) Possible colovesicular fistula 4) Hx of diverticulitis Plan: -Continue supportive care -Continue abx as per primary team -s/p Cystoscopy and per op report no clear extravasation of contrast beyond bladder wall but possible fecal material in bladder? -Await further surgery and urology recommendations -Diet as per urology and surgery pending any procedure -IR consult placed by surgery for abscess drainage -Will need an outpt colonoscopy for screening and evaluation post diverticulitis after 8 weeks <Kane Unger - Last Filed: 10/23/17 18:59> Objective - Vital Signs/Intake and Output Vital Signs (last 24 hours): Temp Pulse Resp BP Pulse Ox 98.0 F 64 19 163/82 H 100 10/23/17 15:42 10/23/17 15:42 10/23/17 15:42 10/23/17 15:42 10/23/17 15:42 - Medications Medications: Current Medications Acetaminophen (Tylenol 325mg Tab) 650 mg PO Q4 PRN PRN Reason: Fever >100.4 F Last Admin: 10/20/17 08:33 Dose: 650 mg Atenolol (Tenormin) 50 mg PO DAILY [facility] Last Admin: 10/23/17 08:59 Dose: 50 mg Cyanocobalamin (Vitamin B12 1000 Mcg/Ml Inj) 1,000 mcg IM DAILY [facility] Last Admin: 10/23/17 12:36 Dose: 1,000 mcg Docusate Sodium (Colace) 100 mg PO BID [facility] Last Admin: 10/23/17 16:32 Dose: 100 mg Enoxaparin Sodium (Lovenox) 40 mg SC DAILY [facility] PRN Reason: Protocol Last Admin: 10/23/17 08:54 Dose: 40 mg Fenofibrate (Tricor) 145 mg PO DAILY [facility] Last Admin: 10/23/17 08:55 Dose: 145 mg Metronidazole (Flagyl 500mg/100ml Ns) 100 mls @ 100 mls/hr IVPB Q8 [facility] PRN Reason: Protocol Last Admin: 10/23/17 16:32 Dose: 100 mls/hr Meropenem 1 gm/ Sodium (Chloride) 100 mls @ 100 mls/hr IVPB Q8@0430,1230,2030 [facility] PRN Reason: Protocol Last Admin: 10/23/17 12:36 Dose: 100 mls/hr Levothyroxine Sodium (Synthroid) 25 mcg PO DAILY@0630 [facility] Last Admin: 10/23/17 06:27 Dose: 25 mcg Morphine Sulfate (Morphine) 2 mg IVP Q4 PRN PRN Reason: Pain, severe (8-10) Ondansetron HCl (Zofran Inj) 4 mg IV Q8 PRN PRN Reason: Nausea/Vomiting Psyllium Hydrophilic Mucilloid (Hydrocil Instant) 1 pkt PO DAILY [facility] Last Admin: 10/23/17 08:55 Dose: 1 pkt - Labs Labs: 10/23/17 05:30 10/23/17 05:30 Attending/Attestation - Attestation I have personally seen and examined this patient.: Yes I have fully participated in the care of the patient.: Yes I have reviewed all pertinent clinical information, including history, physical exam and plan: Yes Notes (Text): 10/23/17 18:59 Chart reviewed. Events noted. Discussed with Dr. Kirby and pt's nurse. Tolerating current diet. Agree with the assessment and plan as outlined above.
--- NOTE | 2017-10-23 13:45 | CP.PCM.PN ---
Subjective - Date & Time of Evaluation Date of Evaluation: 10/23/17 Time of Evaluation: 08:00 - Subjective Subjective: less pain no fever Objective - Vital Signs/Intake and Output Vital Signs (last 24 hours): Temp Pulse Resp BP Pulse Ox 98.2 F 69 19 154/82 H 97 10/23/17 07:49 10/23/17 08:59 10/23/17 07:49 10/23/17 08:59 10/23/17 07:49 - Medications Medications: Current Medications Acetaminophen (Tylenol 325mg Tab) 650 mg PO Q4 PRN PRN Reason: Fever >100.4 F Last Admin: 10/20/17 08:33 Dose: 650 mg Atenolol (Tenormin) 50 mg PO DAILY [facility] Last Admin: 10/23/17 08:59 Dose: 50 mg Cyanocobalamin (Vitamin B12 1000 Mcg/Ml Inj) 1,000 mcg IM DAILY [facility] Last Admin: 10/23/17 12:36 Dose: 1,000 mcg Docusate Sodium (Colace) 100 mg PO BID [facility] Last Admin: 10/23/17 08:55 Dose: 100 mg Enoxaparin Sodium (Lovenox) 40 mg SC DAILY [facility] PRN Reason: Protocol Last Admin: 10/23/17 08:54 Dose: 40 mg Fenofibrate (Tricor) 145 mg PO DAILY [facility] Last Admin: 10/23/17 08:55 Dose: 145 mg Metronidazole (Flagyl 500mg/100ml Ns) 100 mls @ 100 mls/hr IVPB Q8 [facility] PRN Reason: Protocol Last Admin: 10/23/17 08:53 Dose: 100 mls/hr Meropenem 1 gm/ Sodium (Chloride) 100 mls @ 100 mls/hr IVPB Q8@0430,1230,2030 [facility] PRN Reason: Protocol Last Admin: 10/23/17 12:36 Dose: 100 mls/hr Levothyroxine Sodium (Synthroid) 25 mcg PO DAILY@0630 [facility] Last Admin: 10/23/17 06:27 Dose: 25 mcg Morphine Sulfate (Morphine) 2 mg IVP Q4 PRN PRN Reason: Pain, severe (8-10) Ondansetron HCl (Zofran Inj) 4 mg IV Q8 PRN PRN Reason: Nausea/Vomiting Psyllium Hydrophilic Mucilloid (Hydrocil Instant) 1 pkt PO DAILY [facility] Last Admin: 10/23/17 08:55 Dose: 1 pkt - Labs Labs: 10/23/17 05:30 10/23/17 05:30 - Constitutional Appears: Non-toxic, Chronically Ill - Head Exam Head Exam: NORMOCEPHALIC - Eye Exam Eye Exam: PERRL - ENT Exam ENT Exam: Mucous Membranes Dry - Neck Exam Neck Exam: absent: Lymphadenopathy - Respiratory Exam Respiratory Exam: Decreased Breath Sounds - Cardiovascular Exam Cardiovascular Exam: REGULAR RHYTHM - GI/Abdominal Exam GI & Abdominal Exam: Distended, Soft - Rectal Exam Rectal Exam: Deferred - Exam Exam: NORMAL INSPECTION - Extremities Exam Extremities Exam: absent: Pedal Edema - Back Exam Back Exam: absent: CVA tenderness (L), CVA tenderness (R), paraspinal tenderness - Neurological Exam Neurological Exam: Alert, Awake, Oriented x3 Assessment and Plan (1) Diverticulitis Status: Acute (2) Intra-abdominal abscess Status: Acute (3) Urinary tract infection Status: Acute - Assessment and Plan (Free Text) Assessment: cont iv rx
[2017-10-24] MEDS: metroNIDAZOLE 500mg/100ml NS 100 ML IVPB SCH ×2 (00:25→09:34)
[2017-10-24] MEDS: Meropenem 1 GM in Sodium Chloride 0.9% 100 ML IVPB SCH ×2 (03:34→12:32)
[2017-10-24] MEDS: Levothyroxine 25 MCG TAB PO SCH (06:12)
[2017-10-24 06:31] LABS: ALB/GLOB RATIO 1.1 (1.0-2.1); ALBUMIN 3.4 g/dL (3.5-5.0); ALT/SGPT 47 U/L (21-72); AST/SGOT 57 U/L (17-59); BLOOD UREA NITROGEN 12 mg/dl (9-20); GFR AFRICAN-AMERICAN > 60; GFR NON-AFRICAN AMERICAN > 60
[2017-10-24 06:37] LABS: HEMOGLOBIN 12.1 g/dL (12.0-18.0); MEAN CELL VOLUME 95.8 fl (80.0-94.0); MEAN CORPUSCULAR HEMOGLOBIN 33.2 pg (27.0-31.0); MEAN CORPUSCULAR HGB CONC 34.6 g/dL (33.0-37.0); RBC 3.65 Mil/uL (4.40-5.90); RED CELL DISTRIBUTION WIDTH 14.2 % (11.5-14.5); WHITE BLOOD COUNT 5.3 K/uL (4.8-10.8)
--- NOTE | 2017-10-24 07:59 | CP.PCM.PN ---
<Malcom Parada - Last Filed: 10/24/17 10:18> Subjective - Date & Time of Evaluation Date of Evaluation: 10/24/17 Time of Evaluation: 07:00 - Subjective Subjective: PGY5 GI Follow-up Pt seen and examined bedside Denies aany abd pain tolerating diet denies any nausea, vomiting, or diarrhea + BM, without any blood or mucus ROS:12 point roS conducted, neg other than above Objective - Vital Signs/Intake and Output Vital Signs (last 24 hours): Temp Pulse Resp BP Pulse Ox 98.1 F 62 19 168/81 H 99 10/24/17 00:00 10/24/17 00:00 10/24/17 00:00 10/24/17 00:00 10/24/17 00:00 - Medications Medications: Current Medications Acetaminophen (Tylenol 325mg Tab) 650 mg PO Q4 PRN PRN Reason: Fever >100.4 F Last Admin: 10/20/17 08:33 Dose: 650 mg Amlodipine Besylate (Norvasc) 5 mg PO DAILY [facility] Atenolol (Tenormin) 50 mg PO DAILY [facility] Last Admin: 10/23/17 08:59 Dose: 50 mg Cyanocobalamin (Vitamin B12 1000 Mcg/Ml Inj) 1,000 mcg IM DAILY [facility] Last Admin: 10/23/17 12:36 Dose: 1,000 mcg Docusate Sodium (Colace) 100 mg PO BID [facility] Last Admin: 10/23/17 16:32 Dose: 100 mg Enoxaparin Sodium (Lovenox) 40 mg SC DAILY [facility] PRN Reason: Protocol Last Admin: 10/23/17 08:54 Dose: 40 mg Fenofibrate (Tricor) 145 mg PO DAILY [facility] Last Admin: 10/23/17 08:55 Dose: 145 mg Metronidazole (Flagyl 500mg/100ml Ns) 100 mls @ 100 mls/hr IVPB Q8 [facility] PRN Reason: Protocol Last Admin: 10/24/17 00:25 Dose: 100 mls/hr Meropenem 1 gm/ Sodium (Chloride) 100 mls @ 100 mls/hr IVPB Q8@0430,1230,2030 [facility] PRN Reason: Protocol Last Admin: 10/24/17 03:34 Dose: 100 mls/hr Levothyroxine Sodium (Synthroid) 25 mcg PO DAILY@0630 [facility] Last Admin: 10/24/17 06:12 Dose: 25 mcg Morphine Sulfate (Morphine) 2 mg IVP Q4 PRN PRN Reason: Pain, severe (8-10) Ondansetron HCl (Zofran Inj) 4 mg IV Q8 PRN PRN Reason: Nausea/Vomiting Psyllium Hydrophilic Mucilloid (Hydrocil Instant) 1 pkt PO DAILY [facility] Last Admin: 10/23/17 08:55 Dose: 1 pkt - Labs Labs: 10/24/17 05:50 10/24/17 05:50 - Constitutional Appears: Well, No Acute Distress - Head Exam Head Exam: ATRAUMATIC, NORMOCEPHALIC - Eye Exam Eye Exam: Normal appearance - ENT Exam ENT Exam: Mucous Membranes Moist, Normal Exam - Neck Exam Neck Exam: Normal Inspection - Respiratory Exam Respiratory Exam: Clear to Ausculation Bilateral, NORMAL BREATHING PATTERN. absent: Rales, Rhonchi, Wheezes, Respiratory Distress - Cardiovascular Exam Cardiovascular Exam: REGULAR RHYTHM, +S1, +S2 - GI/Abdominal Exam GI & Abdominal Exam: Soft, Normal Bowel Sounds. absent: Firm, Guarding, Rigid, Tenderness, Diminished Bowel Sounds, Organomegaly, Rebound - Extremities Exam Extremities Exam: absent: Joint Swelling, Pedal Edema - Neurological Exam Neurological Exam: Alert, Awake, Oriented x3 - Psychiatric Exam Psychiatric exam: Normal Affect, Normal Mood Assessment and Plan - Assessment and Plan (Free Text) Assessment: This is a 71M w/ hx of diverticulitis, htn, HL who presents to the ER with suprapubic pain. 1) Complicated Acute Sigmoid diverticulitis with possible abscess and possible colovesicular fistula 2) Perivesicular abscess 3) Possible colovesicular fistula 4) Hx of diverticulitis Plan: -Continue supportive care -Continue abx as per primary team -s/p Cystoscopy and per op report no clear extravasation of contrast beyond bladder wall but possible fecal material in bladder? -Await further surgery and urology recommendations -continue diet as tolerated -IR deemed collection not amendable to drainage as per RN -Will need an outpt colonoscopy for screening and evaluation post diverticulitis after 8 weeks D/w Dr. Lin <Joe Lin Y - Last Filed: 10/24/17 11:37> Objective - Vital Signs/Intake and Output Vital Signs (last 24 hours): Temp Pulse Resp BP Pulse Ox 97.6 F 58 L 19 168/82 H 98 10/24/17 08:17 10/24/17 08:17 10/24/17 08:17 10/24/17 08:17 10/24/17 08:17 - Medications Medications: Current Medications Acetaminophen (Tylenol 325mg Tab) 650 mg PO Q4 PRN PRN Reason: Fever >100.4 F Last Admin: 10/20/17 08:33 Dose: 650 mg Amlodipine Besylate (Norvasc) 5 mg PO DAILY [facility] Last Admin: 10/24/17 09:33 Dose: 5 mg Atenolol (Tenormin) 50 mg PO DAILY [facility] Last Admin: 10/24/17 09:33 Dose: 50 mg Cyanocobalamin (Vitamin B12 1000 Mcg/Ml Inj) 1,000 mcg IM DAILY [facility] Last Admin: 10/24/17 09:32 Dose: 1,000 mcg Docusate Sodium (Colace) 100 mg PO BID [facility] Last Admin: 10/24/17 09:33 Dose: 100 mg Enoxaparin Sodium (Lovenox) 40 mg SC DAILY [facility] PRN Reason: Protocol Last Admin: 10/24/17 09:32 Dose: 40 mg Fenofibrate (Tricor) 145 mg PO DAILY [facility] Last Admin: 10/24/17 09:33 Dose: 145 mg Metronidazole (Flagyl 500mg/100ml Ns) 100 mls @ 100 mls/hr IVPB Q8 [facility] PRN Reason: Protocol Last Admin: 10/24/17 09:34 Dose: 100 mls/hr Meropenem 1 gm/ Sodium (Chloride) 100 mls @ 100 mls/hr IVPB Q8@0430,1230,2030 [facility] PRN Reason: Protocol Last Admin: 10/24/17 03:34 Dose: 100 mls/hr Levothyroxine Sodium (Synthroid) 25 mcg PO DAILY@0630 [facility] Last Admin: 10/24/17 06:12 Dose: 25 mcg Morphine Sulfate (Morphine) 2 mg IVP Q4 PRN PRN Reason: Pain, severe (8-10) Ondansetron HCl (Zofran Inj) 4 mg IV Q8 PRN PRN Reason: Nausea/Vomiting Psyllium Hydrophilic Mucilloid (Hydrocil Instant) 1 pkt PO DAILY [facility] Last Admin: 10/24/17 09:34 Dose: 1 pkt - Labs Labs: 10/24/17 05:50 10/24/17 05:50 Attending/Attestation - Attestation I have personally seen and examined this patient.: Yes I have fully participated in the care of the patient.: Yes I have reviewed all pertinent clinical information, including history, physical exam and plan: Yes Notes (Text): 10/24/17 11:34 I have seen and examined patient with GI fellow. No acute events overnight, he is seen ambulating in room, appears quite comfortable. He denies abdominal pain , nausea, vomiting. Tolerating PO diet without difficulty. Review of vitals from today shows elevated BP. HTN Hyperlipidemia Abdominal pain - resolved - acute sigmoid diverticulitis complicated by dwight- colonic abscess ?colovesicular fistula - Diet as tolerated - Follow up surgery and urology recommendations - Continue with antibiotic therapy - Consider further examination with pelvic MRI for fistula evaluation - No further planned GI interventions, will sign off case. Patient should have outpatient colonoscopy performed in 2 months, will arrange for office follow up. Please reconsult as necessary, thank you.
--- NOTE | 2017-10-24 08:01 | CP.PCM.PN ---
Subjective - Date & Time of Evaluation Date of Evaluation: 10/24/17 Time of Evaluation: 06:50 - Subjective Subjective: General Surgery Pt seen and examined. No issues overnight. Afebrile. Tolerating soft, low res diet. + BM/Flatus. Denies fever, chills, nausea, emesis, diarrhea, dysuria. Discussed the importance of follow up for colonoscopy with GI. Objective - Vital Signs/Intake and Output Vital Signs (last 24 hours): Temp Pulse Resp BP Pulse Ox 98.1 F 62 19 168/81 H 99 10/24/17 00:00 10/24/17 00:00 10/24/17 00:00 10/24/17 00:00 10/24/17 00:00 - Medications Medications: Current Medications Acetaminophen (Tylenol 325mg Tab) 650 mg PO Q4 PRN PRN Reason: Fever >100.4 F Last Admin: 10/20/17 08:33 Dose: 650 mg Amlodipine Besylate (Norvasc) 5 mg PO DAILY [facility] Atenolol (Tenormin) 50 mg PO DAILY [facility] Last Admin: 10/23/17 08:59 Dose: 50 mg Cyanocobalamin (Vitamin B12 1000 Mcg/Ml Inj) 1,000 mcg IM DAILY [facility] Last Admin: 10/23/17 12:36 Dose: 1,000 mcg Docusate Sodium (Colace) 100 mg PO BID [facility] Last Admin: 10/23/17 16:32 Dose: 100 mg Enoxaparin Sodium (Lovenox) 40 mg SC DAILY [facility] PRN Reason: Protocol Last Admin: 10/23/17 08:54 Dose: 40 mg Fenofibrate (Tricor) 145 mg PO DAILY [facility] Last Admin: 10/23/17 08:55 Dose: 145 mg Metronidazole (Flagyl 500mg/100ml Ns) 100 mls @ 100 mls/hr IVPB Q8 [facility] PRN Reason: Protocol Last Admin: 10/24/17 00:25 Dose: 100 mls/hr Meropenem 1 gm/ Sodium (Chloride) 100 mls @ 100 mls/hr IVPB Q8@0430,1230,2030 [facility] PRN Reason: Protocol Last Admin: 10/24/17 03:34 Dose: 100 mls/hr Levothyroxine Sodium (Synthroid) 25 mcg PO DAILY@0630 [facility] Last Admin: 10/24/17 06:12 Dose: 25 mcg Morphine Sulfate (Morphine) 2 mg IVP Q4 PRN PRN Reason: Pain, severe (8-10) Ondansetron HCl (Zofran Inj) 4 mg IV Q8 PRN PRN Reason: Nausea/Vomiting Psyllium Hydrophilic Mucilloid (Hydrocil Instant) 1 pkt PO DAILY [facility] Last Admin: 10/23/17 08:55 Dose: 1 pkt - Labs Labs: 10/24/17 05:50 10/24/17 05:50 - Constitutional Appears: Non-toxic, No Acute Distress - Head Exam Head Exam: ATRAUMATIC, NORMOCEPHALIC - Eye Exam Eye Exam: EOMI. absent: Scleral icterus - Respiratory Exam Respiratory Exam: NORMAL BREATHING PATTERN. absent: Respiratory Distress - Cardiovascular Exam Cardiovascular Exam: RRR, +S1, +S2 - GI/Abdominal Exam GI & Abdominal Exam: Soft. absent: Distended, Firm, Guarding, Rigid, Tenderness , Rebound - Extremities Exam Extremities Exam: Normal Capillary Refill. absent: Calf Tenderness, Pedal Edema - Neurological Exam Neurological Exam: Alert, Awake, Oriented x3 - Skin Skin Exam: Dry, Warm Assessment and Plan - Assessment and Plan (Free Text) Assessment: 71M with recurrent, complicated sigmoid diverticulitis and possible colovesicular fistula/perivesicular abscess. Plan: - Soft, low residual diet. Advance as tolerated. - Cont. Zosyn/Flagyl per ID - Cont. Stool softeners - Recommend Nutrition consult to assist pt in planning low carb/low fat/high fiber diet - Colonoscopy in 6-8 weeks with GI - F/U in Surgery clinic 2 weeks after colonoscopy - Ok for DC from a surgical standpoint if no other issues. D/W Dr. Tal Mortensen PGY4
[2017-10-24 08:18] VITALS: BP 168/82; PULSE 58; TEMP 97.6; O2SAT 98
[2017-10-24] MEDS: Enoxaparin 40 mg Syringe SC SCH (09:32)
[2017-10-24] MEDS: Psyllium Packet PO SCH (09:34)
--- NOTE | 2017-10-24 12:21 | CP.PCM.PN ---
Subjective - Date & Time of Evaluation Date of Evaluation: 10/24/17 Time of Evaluation: 08:00 - Subjective Subjective: improving nad for follow up with GI Objective - Vital Signs/Intake and Output Vital Signs (last 24 hours): Temp Pulse Resp BP Pulse Ox 97.6 F 58 L 19 168/82 H 98 10/24/17 08:17 10/24/17 08:17 10/24/17 08:17 10/24/17 08:17 10/24/17 08:17 - Medications Medications: Current Medications Acetaminophen (Tylenol 325mg Tab) 650 mg PO Q4 PRN PRN Reason: Fever >100.4 F Last Admin: 10/20/17 08:33 Dose: 650 mg Amlodipine Besylate (Norvasc) 5 mg PO DAILY [facility] Last Admin: 10/24/17 09:33 Dose: 5 mg Atenolol (Tenormin) 50 mg PO DAILY [facility] Last Admin: 10/24/17 09:33 Dose: 50 mg Cyanocobalamin (Vitamin B12 1000 Mcg/Ml Inj) 1,000 mcg IM DAILY [facility] Last Admin: 10/24/17 09:32 Dose: 1,000 mcg Docusate Sodium (Colace) 100 mg PO BID [facility] Last Admin: 10/24/17 09:33 Dose: 100 mg Enoxaparin Sodium (Lovenox) 40 mg SC DAILY [facility] PRN Reason: Protocol Last Admin: 10/24/17 09:32 Dose: 40 mg Fenofibrate (Tricor) 145 mg PO DAILY [facility] Last Admin: 10/24/17 09:33 Dose: 145 mg Metronidazole (Flagyl 500mg/100ml Ns) 100 mls @ 100 mls/hr IVPB Q8 [facility] PRN Reason: Protocol Last Admin: 10/24/17 09:34 Dose: 100 mls/hr Meropenem 1 gm/ Sodium (Chloride) 100 mls @ 100 mls/hr IVPB Q8@0430,1230,2030 [facility] PRN Reason: Protocol Last Admin: 10/24/17 03:34 Dose: 100 mls/hr Levothyroxine Sodium (Synthroid) 25 mcg PO DAILY@0630 [facility] Last Admin: 10/24/17 06:12 Dose: 25 mcg Morphine Sulfate (Morphine) 2 mg IVP Q4 PRN PRN Reason: Pain, severe (8-10) Ondansetron HCl (Zofran Inj) 4 mg IV Q8 PRN PRN Reason: Nausea/Vomiting Psyllium Hydrophilic Mucilloid (Hydrocil Instant) 1 pkt PO DAILY [facility] Last Admin: 10/24/17 09:34 Dose: 1 pkt - Labs Labs: 10/24/17 05:50 10/24/17 05:50 - Constitutional Appears: Chronically Ill - Head Exam Head Exam: ATRAUMATIC - Eye Exam Eye Exam: PERRL - ENT Exam ENT Exam: Mucous Membranes Dry - Neck Exam Neck Exam: absent: Lymphadenopathy - Respiratory Exam Respiratory Exam: Decreased Breath Sounds - Cardiovascular Exam Cardiovascular Exam: REGULAR RHYTHM - GI/Abdominal Exam GI & Abdominal Exam: Distended, Soft Assessment and Plan (1) Diverticulitis Status: Acute (2) Intra-abdominal abscess Status: Acute (3) Urinary tract infection Status: Acute
--- NOTE | 2017-10-24 13:07 | PN ---
Copied To: Aleksandar Kendall MD Attending MD: Aleksandar Kendall MD DATE: 10/24/2017 SUBJECTIVE: The patient seen and examined. Interim events noted. Consults noted and appreciated. Gastroenterology followup and intervention noted and appreciated. The patient remains in regular medical floor. Feels much better. No abdominal pain, nausea, vomiting, diarrhea, constipation or any other GI complaints. The patient is tolerating food very well and also moving bowels without any trouble. PHYSICAL EXAMINATION: GENERAL: The patient is in no acute distress. VITAL SIGNS: Stable. HEART: S1 and S2. Normal and regular. LUNGS: Good bilateral air exchange. ABDOMEN: Soft and nontender. No organomegaly noted. Bowel sounds are plus and normal. No sign of acute abdomen. No guarding. No rigidity. No rebound. EXTREMITIES: No edema. No calf swelling. No tenderness. No acute ischemia. [employer] BR[employer]ERS: Exam is essentially unchanged. DIAGNOSTIC DATA: Available diagnostic data reviewed. ASSESSMENT AND PLAN: Overall, the patient's general medical condition is stable. Plan as ordered. Aleksandar Kendall MD
== END 2017-10-24 14:02 | disposition home or self-care (01) | DRG 392 ==
LOC: H.ER 21:00 → H.ERHOLD 10-19 01:34 → H.MEDSURG1 10-19 02:45
PROVIDERS: ADMIT Internal Medicine; ATTEND Internal Medicine
PROC: 0TJB8ZZ Inspection of Bladder, Via Natural or Artificial Opening Endoscopic (ICD-10-PCS; principal; 2017-10-21 07:45)
PROC: BT10ZZZ Fluoroscopy of Bladder (ICD-10-PCS; 2017-10-21 07:45)
DX: K57.20 Diverticulitis of large intestine with perforation and abscess without bleeding (principal); N32.1 Vesicointestinal fistula; E03.9 Hypothyroidism, unspecified; K76.0 Fatty (change of) liver, not elsewhere classified; E53.8 Deficiency of other specified B group vitamins; I10 Essential (primary) hypertension; E78.5 Hyperlipidemia, unspecified; R16.2 Hepatomegaly with splenomegaly, not elsewhere classified; E78.1 Pure hyperglyceridemia; E87.6 Hypokalemia; N30.80 Other cystitis without hematuria